=== PATIENT | male | born 1960 | race Caucasian/White ===

== ENCOUNTER 2016-10-22 10:15 | Day surgery (SDC) | payer BC ==
[~2016-10-22] VITALS: Ht 175.3 cm; Wt 88.5 kg
[~2016-10-22 10:15] MED LIST: ASPI-558 PO; CLOP75TA19 PO; DOCO1CAP PO; HYDR-1372 PO; METH750T89 PO; METO25TA41 PO; NITR0.4T38 SL; PANT40TA32 PO; ROSU20TA11 PO; TRAM50TA4 PO; [UNRECOGNIZED DRUG - CODE] IH
--- OUTSIDE RECORDS SUMMARY | 2016-10-22 10:19 | XMS REPORT | Continuity of Care Document ---
Demographics Preferred Language Unknown Marital Status Unknown Jain Affiliation Unknown Race Unknown Ethnic Group Unknown Author Author [facility] Organization [facility] Address Unknown Phone Unavailable Allergies Active Description Code Type Severity Reaction Onset Reported/Identified Relationship to Patient Clinical Status Yes No Known Allergies NKMA N/A N/A 10/09/2014 Medications Problems Procedures Results Encounters ACCT No. Visit Date/Time Discharge Status Pt. Type Provider Facility Loc./Unit Complaint [id number] 12/02/2014 13:22:00 Document Registration
--- OUTSIDE RECORDS SUMMARY | 2016-10-22 10:19 | XMS REPORT | Referral Summary ---
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 Final: OTHER AND UNSPECIFIED HYPERLIPIDEMIA Discharge Disposition: 01-Home or Self Care Attending Physician: Jay Lynch MD Admitting Physician: Jay Lynch MD Vital Signs Most recent to 1 oldest [Reference Range]: Temperature Oral 36.5 degC [35.8-37.3 degC] (10/11/14 12:00 PM) Temperature Tympanic 36.1 degC [36.6-38.1 degC] *LOW* (10/09/14 4:05 PM) Temperature Temporal 36.6 degC Artery [36.3-37.8 (10/10/14 12:35 PM) degC] Peripheral Pulse 62 bpm Rate [60-100 bpm] (10/11/14 6:10 PM) Heart Rate Monitored 53 bpm [60-100 bpm] *LOW* (10/11/14 4:30 PM) Respiratory Rate 17 br/min [14-20 br/min] (10/11/14 4:30 PM) Blood Pressure 122/74 mmHg [90-140/60-90 mmHg] (10/11/14 6:10 PM) Mean Arterial 89 mmHg Pressure, Cuff (10/11/14 4:30 PM) SpO2 94 % (10/11/14 6:10 PM) Problem List Condition Effective Dates Status Health Status Informant Acute Active pain(Confirmed) Cardiac Active disorder(Confirmed)1 Chronic back Active patient pain(Confirmed) High Active patient cholesterol(Confirme d) Knowledge Active deficit(Confirmed)2 No Chronic Problems Active Tissue perfusion Active alteration(Confirmed )3 Tobacco Active patient user(Confirmed) 1Problem added automatically by system based on initiation of Cardiac Output/ Ineffective Cardiac Perfusion Plan of Care 2Problem added automatically by system based on initiation of Knowledge Deficit Plan of Care 3Problem added automatically by system based on initiation of Tissue Perfusion Cerebral Plan of Care Allergies, Adverse Reactions, Alerts No Known Allergies Medications aspirin 81 mg, Oral, Daily, 0 Refill(s) Start Date: 10/09/14 Status: Ordered Crestor 20 mg, Oral, Bedtime (once a day), 0 Refill(s) Start Date: 10/09/14 Status: Ordered Fish Oil Oral, Daily, 0 Refill(s) Start Date: 10/09/14 Status: Ordered isosorbide mononitrate 30 mg oral tablet, extended release 1 tabs, Oral, qAM, # 30 tabs, 6 Refill(s), other reason (Rx) Start Date: 10/11/14 Status: Ordered methocarbamol 750 mg, Oral, q6hr, 0 Refill(s) Start Date: 10/09/14 Status: Ordered metoprolol tartrate 25 mg oral tablet 1 tabs, Oral, BID, # 60 tabs, 0 Refill(s), other reason (Rx) Start Date: 10/11/14 Status: Ordered Mazama 10 mg-325 mg oral tablet 1 tabs, Oral, q6hr, as needed for pain, 0 Refill(s) Start Date: 10/09/14 Status: Ordered Plavix 75 mg, Oral, Daily, 0 Refill(s) Start Date: 10/09/14 Status: Ordered traMADol 50 mg, Oral, QID, as needed for pain, 0 Refill(s) Start Date: 10/09/14 Status: Ordered Ventolin HFA 90 mcg/inh inhalation aerosol 2 puffs, Inhalation, q4hr, as needed for wheezing, 0 Refill(s) Start Date: 10/09/14 Status: Ordered Results Hematology Most recent to 1 oldest [Reference Range]: WBC [4.8-10.8 9.7 10*3/uL 10*3/uL] (10/11/14 6:30 AM) RBC [4.60-6.20 5.18 10*6/uL 10*6/uL] (10/11/14 6:30 AM) Hgb [14.0-18.0 15.8 gm/dL gm/dL] (10/11/14 6:30 AM) Hct [42.0-52.0 %] 46.7 % (10/11/14 6:30 AM) MCV [82.0-99.0 fL] 90.2 fL (10/11/14 6:30 AM) MCH [27.0-32.0 pg] 30.5 pg (10/11/14 6:30 AM) MCHC [32.0-36.0 33.8 gm/dL gm/dL] (10/11/14 6:30 AM) RDW [11.5-14.5 %] 13.0 % (10/11/14 6:30 AM) Platelet [150-400 158 10*3/uL 10*3/uL] (10/11/14 6:30 AM) MPV [9.4-12.3 fL] 10.3 fL (10/11/14 6:30 AM) Immature 0.6 % Granulocytes (10/09/14 2:35 PM) [0.0-1.0 %] Neutrophils [51-75 51 % %] (10/09/14 2:35 PM) Lymphocytes [20-46 40 % %] (10/09/14 2:35 PM) Monocytes [4-11 %] 7 % (10/09/14 2:35 PM) Eosinophils [0-4 %] 2 % (10/09/14 2:35 PM) Basophils [0-2 %] 0 % (10/09/14 2:35 PM) Neutro Absolute 6.35 10*3 [1.90-7.00 10*3] (10/09/14 2:35 PM) Lymph Absolute 4.99 10*3 [0.80-3.30 10*3] *HI* (10/09/14 2:35 PM) [place] Absolute 0.81 10*3 [0.30-1.00 10*3] (10/09/14 2:35 PM) Eos Absolute 0.20 10*3 [0.00-0.50 10*3] (10/09/14 2:35 PM) Baso Absolute 0.04 10*3 [0.00-0.20 10*3] (10/09/14 2:35 PM) Nucleated RBC 0.0 /100 WBC Automated [0 /100 (10/09/14 2:35 PM) WBC] Coagulation Most recent to 1 oldest [Reference Range]: INR [0.9-1.2] 1.0 (10/09/14 5:02 PM) PTT [25.0-35.0] 32.7 (10/10/14 6:01 PM) Chemistry Most recent to 1 oldest [Reference Range]: Sodium Lvl [136-144 138 mEq/L mEq/L] (10/11/14 6:30 AM) Potassium Lvl 4.0 mEq/L [3.6-5.1 mEq/L] (10/11/14 6:30 AM) Chloride [99-109 106 mEq/L mEq/L] (10/11/14 6:30 AM) CO2 [22-32 mEq/L] 26 mEq/L (10/11/14 6:30 AM) AGAP [3-20] 6 (10/11/14 6:30 AM) BUN [4-20 mg/dL] 13 mg/dL (10/11/14 6:30 AM) Glucose Lvl [70-100 103 mg/dL mg/dL] *HI* (10/11/14 6:30 AM) Creatinine Lvl 0.76 mg/dL [0.64-1.27 mg/dL] (10/11/14 6:30 AM) eGFR [>60] >60 1 (10/11/14 6:30 AM) Calcium Lvl 9.0 mg/dL [8.6-10.0 mg/dL] (10/11/14 6:30 AM) Albumin Lvl [3.5-4.8 4.4 gm/dL gm/dL] (10/09/14 2:35 PM) Total Protein 6.8 gm/dL [6.1-7.9 gm/dL] (10/09/14 2:35 PM) Globulin [1.9-4.3 2.4 gm/dL gm/dL] (10/09/14 2:35 PM) ALT [17-63 U/L] 22 U/L (10/09/14 2:35 PM) AST [15-41 U/L] 26 U/L (10/09/14 2:35 PM) Alk Phos [26-104 61 U/L U/L] (10/09/14 2:35 PM) Bili Total [0.2-1.2 0.8 mg/dL 2 mg/dL] (10/09/14 2:35 PM) Troponin [<0.06 <0.05 ng/mL ng/mL] (10/10/14 4:18 AM) Sodium Venous 132 mEq/L [136-144 mEq/L] *LOW* (10/09/14 2:47 PM) Potassium Venous 3.6 mEq/L 3 [3.6-5.1 mEq/L] (10/09/14 2:47 PM) Calcium Ionized 0.99 mmol/L Venous [1.19-1.41 *LOW* mmol/L] (10/09/14 2:47 PM) Total CO2 Venous 24 mEq/L [25-29 mEq/L] *LOW* (10/09/14 2:47 PM) HGB Venous NPT 16.7 gm/dL [14.0-16.0 gm/dL] *HI* (10/09/14 2:47 PM) HCT Venous 49.0 % [42.0-52.0 %] (10/09/14 2:47 PM) Glucose Venous 103 mg/dL [70-100 mg/dL] *HI* (10/09/14 2:47 PM) BUN Venous [4-20] 10 (10/09/14 2:47 PM) Creatinine Venous 0.9 mg/dL [0.7-1.2 mg/dL] (10/09/14 2:47 PM) Venous CL [99-109 112 mEq/L mEq/L] *HI* (10/09/14 2:47 PM) Anion Gap, Vignesh -4 [3-20] *LOW* (10/09/14 2:47 PM) Blood Glucose, 98 mg/dL Capillary [70-100 (10/11/14 12:40 PM) mg/dL] 1Result Comment: Multiply eGFR results by 1.21 for race. 2Result Comment: Naproxen, specifically the metabolite O-desmethylnaproxen, may cause spurious elevation in Total Bilirubin levels. 3Result Comment: This test was performed on a whole blood specimen. The presence or absence of hemolysis cannot be assessed. Hemolysis can falsely elevate potassium levels. Normals are for venous specimens only. Immunizations No data available for this section Procedures Procedure Date Related Diagnosis Body Site Stent placement1 01/01/14 Cervical spine2 06/03/07 Shoulder implantation3 06/03/04 Stent placement4 1has had 5 coronary stents, most recent in january 2screws placed in cervical spine 3prosthetic shoulder 45 coronary stents Social History Social History Type Response Smoking Status Current every day smoker; Type: Cigarettes; Tobacco use per day: 1 Pack1 04/04 - 1 pack Assessment and Plan No data available for this section
--- OUTSIDE RECORDS SUMMARY | 2016-10-22 10:19 | XMS REPORT | Continuity of Care Document ---
Author Author [facility] Organization [facility] Address Unknown Phone Unavailable Support Name Relationship Address Phone MUKESH HEBERT II, MD Caregiver [address] [facility] [place] [phone] RAN PATEL MD Caregiver [facility] [place] [phone] ROULA GOODMAN Next Of Kin [phone] [id number] Insurance Providers Payer Name Policy Number Subscriber Name Relationship [facility] [id number] Jose Alfredo Goodman 20 Self Advance Directives Directive Response Recorded Date/Time Advanced Directives Type None 11/12/13 10:05am Problems Medical Problems Problem Onset Date Status Right flank pain Unknown Active Right flank pain Unknown Active Laceration Unknown Active Medications Medication Dose Route Sig Days/Qty Instructions Order Date Discontinued Date Status Aspirin 81 Mg PO DAILY 09/07/08 Active Rosuvastatin Calcium 20 Mg PO DAILY 09/07/08 Active Docosahexanoic Acid/Epa 400 Mg PO TWICE A DAY 09/07/08 Active Methocarbamol 750 Mg PO Every 6 Hours 09/07/08 Active Tramadol Hcl 50 Mg PO FOUR TIMES DAILY PRN 08/08/12 Active Isosorbide Mononitrate 30 Mg PO DAILY 08/11/12 10/07/12 Discontinued Nitroglycerin 0.4 Mg SL NEEDED 08/11/12 Active Albuterol Sulfate NEEDED 08/11/12 08/12/12 Discontinued Ipratropium/Albuterol Sulfate 2 Puff IH NEEDED 08/12/12 Active Metoprolol Tartrate 25 Mg PO TWICE A DAY 10/07/12 Active Clopidogrel Bisulfate 75 Mg PO DAILY 10/07/12 Active Pantoprazole Sodium 40 Mg PO DAILY 10/08/12 Active Hydrocodone Bit/Acetaminophen 1-2 Tab PO Every 6 Hours PRN PAIN 30 Qty 11/12/13 Active Social History Social History Problem Response Recorded Date/Time Smoking Status Former smoker 11/12/2013 10:30am When did patient START smoking? 17 years of age 1104/04/2014 12:09pm Chewing Tobacco Status No 11/12/2013 10:30am Hx Substance Use No 04/04/2014 12:09pm Hx Alcohol Use No 04/04/2014 12:09pm Has the pt used tobacco in the last 12 months Yes 10/07/2012 2:51pm Query Response Start Date Stop Date Smoking Status Former smoker Hospital Discharge Instructions No hospital discharge instructions. Plan of Care No plan of care. Functional Status Query Response Date Recorded Physical Hygiene Self April 04, 2014 12:09pm Disabilities None April 04, 2014 12:09pm Devices Used None April 04, 2014 12:09pm Dressing Self April 04, 2014 12:09pm Ambulation Self April 04, 2014 12:09pm Diet Self April 04, 2014 12:09pm Mental Status Alert Oriented April 04, 2014 12:52pm Disabilities None April 04, 2014 12:09pm Devices Used None April 04, 2014 12:09pm Physical Hygiene Self April 04, 2014 12:09pm Dressing Self April 04, 2014 12:09pm Ambulation Self April 04, 2014 12:09pm Diet Self April 04, 2014 12:09pm Allergies, Adverse Reactions, Alerts Allergen Type Severity Reaction Status Last Updated Cephalosporins Allergy Unknown HIVES Active 04/04/14 Immunizations Name Given Type Hx Influenza Vaccination Y AUGUST 2012 Historical Hx Pneumococcal Vaccination Y AUGUST 2012 Historical Hx Tetanus, Diptheria, Pertussis Y 2011 Historical Hx Influenza Vaccination Y AUGUST 2012 Historical Hx Tetanus, Diptheria, Pertussis Y 2011 Historical Vital Signs Acute Vital Signs Vital Response Date/Time Temperature (Fahrenheit) 97.3 deg F (96.8 - 99.1) Temperature (Calculated Celsius) 36.54739 degrees C (36.0 - 37.3) Pulse Rate (adult) 61 bpm (60 - 100) Respiratory Rate 18 breaths/min (10 - 20) O2 Sat by Pulse Oximetry 93 % (90 - 100) Blood Pressure 127/73 mm Hg Height 5 ft 9 in Weight 192 lb Body Mass Index 28.0 kg/m^2 Results Test Source Date Result Interp. Ref. Range Comments Activated Partial Thromboplast Time August 08, 2012 7:06pm 35.5 SEC N 24- 36 Alanine Aminotransferase (ALT/SGPT) November 12, 2013 10:10am 29 U/L N 21- 72 Albumin November 12, 2013 10:10am 5.0 G/DL N 3.5-5.0 Albumin/Globulin Ratio November 12, 2013 10:10am 1.9 RATIO N 1.1-2.2 Alkaline Phosphatase November 12, 2013 10:10am 74 U/L N 38-126 Anion Gap November 12, 2013 10:10am 13 MEQ/L N 5-15 Aspartate Amino Transf (AST/SGOT) November 12, 2013 10:10am 26 U/L N 17-59 BUN/Creatinine Ratio November 12, 2013 10:10am 15 RATIO N 6-26 Band Neutrophils # September 02, 2010 3:00pm 0.5 T/MM3 - Band Neutrophils % September 02, 2010 3:00pm 3.0 % N 0-6 Basophils # (Auto) November 12, 2013 10:10am 0.1 T/MM3 N 0-0.2 Basophils (%) (Auto) November 12, 2013 10:10am 0.5 % N 0-2 Blood Urea Nitrogen November 12, 2013 10:10am 9.0 MG/DL N 9-20 C-Reactive Protein September 02, 2010 3:00pm < 5.0 MG/L 0-9 Calcium Level November 12, 2013 10:10am 9.6 MG/DL N 8.4-10.2 Calculated Osmolality November 12, 2013 10:10am 276 MOSM/KG N 261-280 Carbon Dioxide Level November 12, 2013 10:10am 25 MEQ/L N 22-30 Chloride Level November 12, 2013 10:10am 106 MEQ/L N 98-107 Cholesterol Level August 12, 2012 12:00pm 227 MG/DL H 132-199 COMMENT WILL CALL WHEN PT IS ADMITTEDCOMMENT WILL CALL WHEN PT IS HERE/ PLEASE FAX TO [phone] Cholesterol/HDL Ratio August 12, 2012 12:00pm 7.1 RATIO H 0-5.0 COMMENT WILL CALL WHEN PT IS ADMITTEDCOMMENT WILL CALL WHEN PT IS HERE/ PLEASE FAX TO [phone] Conjugated Bilirubin August 08, 2012 7:06pm 0.00 MG/DL N 0.00-0.30 Creatinine November 12, 2013 10:10am 0.6 MG/DL L 0.8-1.5 Differential Total Cells Counted September 02, 2010 3:00pm 100 % - Eosinophils # (Auto) November 12, 2013 10:10am 0.1 T/MM3 N 0-0.5 Eosinophils # (Manual) September 02, 2010 3:00pm 0.6 T/MM3 H 0-0.5 Eosinophils % (Manual) September 02, 2010 3:00pm 4.0 % N 0-4 Eosinophils (%) (Auto) November 12, 2013 10:10am 1.0 % N 0-4 Erythrocyte Sedimentation Rate September 02, 2010 3:00pm 55 MM/HR H 0-15 Globulin November 12, 2013 10:10am 2.7 G/DL N 2.4-3.6 Glucose Level November 12, 2013 10:10am 100 MG/DL N 75-110 Hematocrit November 12, 2013 10:10am 49.7 % N 41-53 Hemoglobin November 12, 2013 10:10am 17.2 GM/DL N 13.5-17.5 LDL Cholesterol, Calculated August 12, 2012 12:00pm 195 H 66-159 COMMENT WILL CALL WHEN PT IS ADMITTEDCOMMENT WILL CALL WHEN PT IS HERE/ PLEASE FAX TO [phone] Lipase November 12, 2013 10:10am 67 U/L N 23-300 Lymphocytes # (Auto) November 12, 2013 10:10am 3.1 T/MM3 N 1-4.8 Lymphocytes # (Manual) September 02, 2010 3:00pm 3.7 T/MM3 N 1-4.8 Lymphocytes % (Manual) September 02, 2010 3:00pm 24.0 % N 23-45 Lymphocytes (%) (Auto) November 12, 2013 10:10am 23.9 % N 23-45 Mean Corpuscular Hemoglobin November 12, 2013 10:10am 30.7 UUG N 26-34 Mean Corpuscular Hemoglobin Concent November 12, 2013 10:10am 34.6 GM/DL N 31-37 Mean Corpuscular Volume November 12, 2013 10:10am 88.6 UM3 N 80-100 Mean Platelet Volume November 12, 2013 10:10am 10.7 UM3 N 9.4-12.4 Monocytes # (Auto) November 12, 2013 10:10am 0.5 T/MM3 N 0-0.8 Monocytes (%) (Auto) November 12, 2013 10:10am 4.2 % N 0-9.0 Neutrophils # (Auto) November 12, 2013 10:10am 9.0 T/MM3 H 1.8-7.7 Neutrophils # (Manual) September 02, 2010 3:00pm 10.6 T/MM3 H 1.8-7.7 Neutrophils % (Manual) September 02, 2010 3:00pm 69.0 % H 33-66 Neutrophils (%) (Auto) November 12, 2013 10:10am 70.1 % H 33-66 Platelet Count November 12, 2013 10:10am 172 T/MM3 N 130-400 Potassium Level November 12, 2013 10:10am 4.3 MEQ/L N 3.6-5 Prothromb Time International Ratio August 08, 2012 7:06pm 0.96 N 0.86- 1.10 THERAPUTIC RANGE=2.00-3.00 FOR ANTI-THROMBOSIS THERAPUTIC RANGE=2.50- 3.50 FOR IMPLANTED VALVE RDW Standard Deviation November 12, 2013 10:10am 42.9 FL N 36.9-50.2 Red Blood Count November 12, 2013 10:10am 5.61 M/MM3 N 4.50-5.90 Sodium Level November 12, 2013 10:10am 144 MEQ/L N 134-144 Total Bilirubin November 12, 2013 10:10am 0.60 MG/DL N 0.20-1.30 Total Protein November 12, 2013 10:10am 7.7 G/DL N 6.3-8.2 Triglycerides Level August 12, 2012 12:00pm 422 MG/DL H 40-160 COMMENT WILL CALL WHEN PT IS ADMITTEDCOMMENT WILL CALL WHEN PT IS HERE/ PLEASE FAX TO [phone] Troponin I August 09, 2012 1:32pm < 0.012 ng/ml 0-0.12 Unconjugated Bilirubin August 08, 2012 7:06pm 0.20 MG/DL N 0.00-1.10 Urine Bilirubin November 12, 2013 11:05am Negative - Has specimen been collected/obtained? Y Urine Blood November 12, 2013 11:05am Negative - Has specimen been collected/obtained? Y Urine Collection Type November 12, 2013 11:05am Voided-not cc-midstr - Has specimen been collected/obtained? Y Urine Color November 12, 2013 11:05am Yellow - Has specimen been collected/obtained? Y Urine Glucose (UA) November 12, 2013 11:05am Negative - Has specimen been collected/obtained? Y Urine Ketones November 12, 2013 11:05am Negative - Has specimen been collected/obtained? Y Urine Leukocyte Esterase November 12, 2013 11:05am Trace H - Has specimen been collected/obtained? Y Urine Nitrite November 12, 2013 11:05am Negative - Has specimen been collected/obtained? Y Urine Protein November 12, 2013 11:05am Negative - Has specimen been collected/obtained? Y Urine Specific Export November 12, 2013 11:05am 1.020 - Has specimen been collected/obtained? Y Urine Turbidity November 12, 2013 11:05am Clear - Has specimen been collected/obtained? Y Urine Urobilinogen November 12, 2013 11:05am 0.2 EU/DL - Has specimen been collected/obtained? Y Urine pH November 12, 2013 11:05am 6.5 - Has specimen been collected/ obtained? Y VLDL Cholesterol August 12, 2012 12:00pm 84.4 MG/DL H 0-28 COMMENT WILL CALL WHEN PT IS ADMITTEDCOMMENT WILL CALL WHEN PT IS HERE/ PLEASE FAX TO [phone] White Blood Count November 12, 2013 10:10am 12.8 T/MM3 H 4.5-11.0 Chemistry Specimen Hemolysis November 12, 2013 10:10am 24 N 0-25 0-25: No Hemolysis.26-70: Slight Hemolysis - can falsely elevate K and Urine Protein. 71-285: Moderate Hemolysis - can falsely elevate K, Troponin I, CA 19-9, PTH, CSF GLucose, and Urine Protein, and can falsely decrease Phenytoin. 286-999: Gross Hemolysis - can falsely elevate K, Troponin I, CA 19-9, PTH, CSF Glucose, and Urine Protine, and can falsely decrease Phenytoin. Recommend specimen recollection. Urinalysis Comment November 12, 2013 11:05am Microscopic not ind. - Has specimen been collected/obtained? Y HDL Cholesterol Direct August 12, 2012 12:00pm 32 MG/DL L 40-60 COMMENT WILL CALL WHEN PT IS ADMITTEDCOMMENT WILL CALL WHEN PT IS HERE/ PLEASE FAX TO [phone] Turbidity November 12, 2013 10:10am < 20 0-20 Glomerular Filtration Rate Calc November 12, 2013 10:10am 142 - Immature Granulocyte # (Auto) November 12, 2013 10:10am 0.04 T/MM3 H 0.00- 0.03 Immature Granulocyte % (Auto) November 12, 2013 10:10am 0.3 % N 0.0-0.5 Icterus Index November 12, 2013 10:10am < 2 0-7 NU-Grn-F-Type Natriuretic Peptide August 08, 2012 7:06pm 32 PG/ML N 0- 175 Rule in cut points: <50 years old=450; 50-75 years old=900; >75 years old=1800; When utilizing ProBNP rule-in cut points, adjustment for impaired renal function is typically not required. Blood Culture Blood September 02, 2010 3:00pm NO GROWTH AFTER 5 DAYS Procedures No known history of procedures. Encounters Encounter Location Date/Time Departed Emergency Room [facility] 04/04/14 11:40am Recent Diagnosis
[2016-10-22 10:35] LABS: BASOPHILS # (AUTO) 0.1 T/MM3 (0-0.2); BASOPHILS % (AUTO) 0.6 % (0-2); EOSINOPHILS # (AUTO) 0.3 T/MM3 (0-0.5); EOSINOPHILS % (AUTO) 2.7 % (0-4); HCT - HEMATOCRIT 43.9 % (41-53); HGB - HEMOGLOBIN 15.8 GM/DL (13.5-17.5); IMMATURE GRANULOCYTE # (AUTO) 0.04 T/MM3 (0.00-0.03); IMMATURE GRANULOCYTE % (AUTO) 0.4 % (0.0-0.5); LYMPHOCYTES % (AUTO) 37.7 % (23-45); MEAN CORPUSCULAR HGB 31.5 UUG (26-34); MEAN CORPUSCULAR VOLUME 87.5 UM3 (80-100); MEAN PLATELET VOLUME 10.7 UM3 (9.4-12.4); MONOCYTES # (AUTO) 0.6 T/MM3 (0-0.8); MONOCYTES % (AUTO) 5.9 % (0-9.0); NEUTROPHILS #(AUTO)-ABSOLUTE 5.6 T/MM3 (1.8-7.7); NEUTROPHILS % (AUTO) 52.7 % (33-66); RED BLOOD COUNT 5.02 M/MM3 (4.50-5.90); WBC - WHITE BLOOD COUNT 10.5 T/MM3 (4.5-11.0)
--- OUTSIDE RECORDS SUMMARY | 2016-10-22 10:36 | XMS REPORT | Continuity of Care Document ---
Demographics Preferred Language Unknown Marital Status Unknown Shinto Affiliation Unknown Race Unknown Ethnic Group Unknown Author Author [facility] Organization [facility] Address Unknown Phone Unavailable Allergies Active Description Code Type Severity Reaction Onset Reported/Identified Relationship to Patient Clinical Status Yes No Known Allergies NKMA N/A N/A 10/09/2014 Medications Problems Procedures Results Encounters ACCT No. Visit Date/Time Discharge Status Pt. Type Provider Facility Loc./Unit Complaint [id number] 12/02/2014 13:22:00 Document Registration
--- OUTSIDE RECORDS SUMMARY | 2016-10-22 10:37 | XMS REPORT | Continuity of Care Document ---
Author Author [facility] Organization [facility] Address Unknown Phone Unavailable Support Name Relationship Address Phone MUKESH HEBERT II, MD Caregiver [address] [facility] [place] [phone] RAN PATEL MD Caregiver [facility] [place] [phone] ROULA GOODMAN Next Of Kin [address] [id number] Insurance Providers Payer Name Policy Number Subscriber Name Relationship [facility] [id number] Jose Alfredo Goodman 20 Self Advance Directives [...] F (96.8 - 99.1) Temperature (Calculated Celsius) 36.51291 degrees C (36.0 - 37.3) Pulse Rate [...] WHEN PT IS HERE/ PLEASE FAX TO [phone] Cholesterol/HDL Ratio August 12, 2012 12:00pm 7.1 RATIO H 0-5.0 COMMENT WILL CALL WHEN PT IS ADMITTEDCOMMENT WILL CALL WHEN PT IS HERE/ PLEASE FAX TO [phone] Conjugated Bilirubin August 08, 2012 7:06pm 0.00 [...] WHEN PT IS HERE/ PLEASE FAX TO [phone] Lipase November 12, 2013 10:10am 67 U/L [...] WHEN PT IS HERE/ PLEASE FAX TO [phone] Troponin I August 09, 2012 1:32pm < [...] Has specimen been collected/obtained? Y Urine Specific [place] November 12, 2013 11:05am 1.020 - Has [...] WHEN PT IS HERE/ PLEASE FAX TO [phone] White Blood Count November 12, 2013 10:10am [...] WHEN PT IS HERE/ PLEASE FAX TO [phone] Turbidity November 12, 2013 10:10am < 20 0-20 Glomerular Filtration Rate Calc November 12, 2013 10:10am 142 - Immature Granulocyte # (Auto) November 12, 2013 10:10am 0.04 T/MM3 H 0.00- 0.03 Immature Granulocyte % (Auto) November 12, 2013 10:10am 0.3 % N 0.0-0.5 Icterus Index November 12, 2013 10:10am < 2 0-7 VM-Byo-T-Type Natriuretic Peptide August 08, 2012 7:06pm 32 [...] Encounters Encounter Location Date/Time Departed Emergency Room [facility] 04/04/14 11:40am Recent Diagnosis
--- NOTE | 2016-10-22 10:42 | ERPDOC ---
Departure Disposition Decision Date: October 22, 2016 Disposition Decision Time: 11:00 Disposition: 02 TO [facility] Impression Impression Impression: Primary Impression: Chest pain Chest pain type: unspecified Qualified Codes: R07.9 - Chest pain, unspecified Severity: Moderate Condition: Improved Seen By: Physician only Referrals: MUKESH HEBERT II, MD (Family) Problems/Meds/Labs Reviewed?: Yes Medications reviewed and manag: Yes Follow up care ordered?: Yes Mental Status: Alert, Oriented HPI - Chest Pain General Chief Complaint: Chest Pain Stated Complaint: CHEST PAIN Time Seen by Provider: 10:23 Source: patient Exam Limitations: no limitations HPI - Chest Pain Initial Comments 56-year-old male presents to emergency department with a chief complaint of chest pain. Patient noted onset of symptoms between 1 and 2 AM earlier today. Patient describes the pain as a very mild pressure sensation in his chest without current radiation. Earlier today the pain did radiate toward his neck. Patient denies any other complaints or associated symptoms. Symptoms have been persistent in nature since onset. He does not note any exacerbating or remitting factors at this time. Patient does have a history of coronary artery disease with 5 stents which have been placed in the past. His last heart cath was in [address] Rabago who is his director global market research. Occurred At: home Onset/Timing: other (Improving) Aspirin Treatment Today: 81 mg x 4, provided by ED Allergies: Coded Allergies: No Known Allergies (Unverified , 10/22/16) Past History Past Medical History Metabolic: hypercholesterolemia Cardiac: CAD Musculoskeletal: back pain, other Surgical History General: back, neck Cardiac: cardiac cath, cardiac stent Joint: knee, shoulder Family History Family PMH: FOUND: [place], diabetes, hypertension Vaccines Hx Influenza Vaccination: Yes (AUGUST 2012) Hx Pneumococcal Vaccination: Yes (AUGUST 2012) Hx Tetanus, Diptheria, Pertuss: Yes (2011) Social History Sexuality: female partner Review of Systems Constitutional Constitutional: DENIES: chills, fever Eyes General: DENIES: erythema, exudate Lids/Accessories: DENIES: erythema, swelling Vision: DENIES: acuity, blurring ENMT Ears: DENIES: drainage, erythema Hearing: DENIES: hearing loss Balance: DENIES: ataxia, falling to one side Sinuses: DENIES: congestion, pain Nose: DENIES: nosebleeds, pain Mouth/Throat: DENIES: painful swallowing, sore throat Teeth: DENIES: pain Jaw: DENIES: pain Cardiovascular Cardiac: chest pain, DENIES: dyspnea on exertion Rhythm/Rate: DENIES: irregular beat, palpitations Vascular: DENIES: pedal edema, unilateral swelling Pulmonary Respiratory: DENIES: cough, dyspnea, pleuritic chest pain, sputum GI Upper Abdomen: DENIES: nausea, pain, vomiting Lower Abdomen: DENIES: diarrhea, pain General: DENIES: burning, dysuria, frequency, urgency Musculoskeletal General: DENIES: joint pain, pain, tenderness Integumentary Skin: DENIES: itching, rash Neurological General: DENIES: change in strength, headache, numbness, weakness Psychiatric Psychiatric: DENIES: emotional instability, suicidal ideation/attempt Endocrine Endocrine: DENIES: polydipsia, polyphagia Hematologic/Lymphatic Hematologic/Lymphatic: DENIES: frequent nosebleeds, lymphadenopathy Allergic/Immunological Allergic/Immunoligical: DENIES: allergic reactions, hives Physical Exam General General Nourishment: well nourished, well developed, appears stated age, no acute distress, adult General Body Habitus: well groomed Vitals and Pain First Documented Vital Signs Date Time Temp Pulse Resp B/P Pulse Ox O2 Delivery O2 Flow Rate FiO2 10/22/16 10:16 98.5 63 19 125/83 95 Room Air Weight: Kilograms: 89.900 Height (feet): 5 Height (inches): 9.00 Triage Pain Scale: RN VS reviewed by Provider: Yes Normal Exams: Head: Normocephalic w/o trauma Eyes: Pupils are PERRLA w/ EOMI, No scleral icterus, irritation, or foreign bodies noted ENMT: No facial trauma, nasal exudates, pharyngeal erythema, or exudates are noted Dental: No fractured, loose, or missing teeth noted Neck: Full range of motion, without adenopathy, JVD, bruits or thyromegaly Chest/Resp: Clear all cheng, with good airflow, and symmetry bilaterally CV: Regular rate and rhythm, without murmur or gallop, Pulses 2+ all extremities, capillary refill, <2 seconds all ext., no pedal edema noted Abdomen: Bowel sounds positive, soft, non-tender, non-distended, no hepatosplenomegaly, masses or bruits noted Lymphatic: No lymphadenopathy, or lymphedema noted Musculoskeletal: No tenderness, or deformity noted, good range of motion, all extremities Integumentary: No rashes, hives, or bruising noted, hair and nails, without abnormality Neurologic: Patient is alert, and oriented, cranial nerves, motor/sensory/ cerebellar, exams w/o gross deficits, to observation Psychiatric: Patient exhibits, appropriate attention, emotion and affect Differential Diagnoses Considering: Acute GA, Anxiety/Panic, Angina, Pneumothorax Progress Results/Orders Orders Procedure Category Date Status Time Cbc W/Auto LAB 10/22/16 Complete Diff-Reflex Manual Cmp - Comprehensive LAB 10/22/16 Complete Metabolic Troponin I W LAB 10/22/16 Complete Hemolysis Index EKG EKG 10/22/16 Taken Chest 1 View RAD 10/22/16 Resulted 10:23 Aspirin (Asa) PHA 10/23/16 In Process 09:00 Fentanyl (Fentanyl) PHA 10/22/16 Complete 11:15 Normal Saline (Normal PHA 10/22/16 Complete Saline Iv) 11:15 Ondansetron Inj PHA 10/22/16 Complete (Zofran) 11:15 Place In Facility: ED ADM 10/22/16 Transmitted 11:01 Lab Results Laboratory Tests Test 10/22/16 10:30 White Blood Count 10.5T/MM3 Red Blood Count 5.02M/MM3 Hemoglobin 15.8GM/DL Hematocrit 43.9% Mean Corpuscular Volume 87.5UM3 Mean Corpuscular Hemoglobin 31.5UUG Mean Corpuscular Hemoglobin Concent 36.0GM/DL RDW Standard Deviation 39.5FL Platelet Count 165T/MM3 Mean Platelet Volume 10.7UM3 Immature Granulocyte % (Auto) 0.4% Neutrophils (%) (Auto) 52.7% Lymphocytes (%) (Auto) 37.7% Monocytes (%) (Auto) 5.9% Eosinophils (%) (Auto) 2.7% Basophils (%) (Auto) 0.6% Absolute Immature Granulocyte (auto 0.04T/MM3 Absolute Neutrophils (auto) 5.6T/MM3 Absolute Lymphocytes (auto) 4.0T/MM3 Absolute Monocytes (auto) 0.6T/MM3 Absolute Eosinophils (auto) 0.3T/MM3 Absolute Basophils (auto) 0.1T/MM3 Turbidity 30 Sodium Level 141MEQ/L Potassium Level 3.8MEQ/L Chloride Level 105MEQ/L Carbon Dioxide Level 24MEQ/L Anion Gap 12MEQ/L Blood Urea Nitrogen 12.0MG/DL Creatinine 0.7MG/DL Glomerular Filtration Rate Calc 118 BUN/Creatinine Ratio 17RATIO Glucose Level 123MG/DL Calculated Osmolality 272MOSM/KG Calcium Level 9.2MG/DL Total Bilirubin 0.60MG/DL Icterus Index < 2 Aspartate Amino Transf (AST/SGOT) 27U/L Alanine Aminotransferase (ALT/SGPT) 50U/L Alkaline Phosphatase 70U/L Troponin I < 0.012ng/ml Total Protein 6.9G/DL Albumin 4.6G/DL Globulin 2.3G/DL Albumin/Globulin Ratio 2.0RATIO Chemistry Specimen Hemolysis 31 Progress Progress Labs / Imaging were discussed in detail with the patient and family and questions are answered. Patient is given fentanyl 50 g IV times one and Zofran 4 mg IV 1 with improvement of symptoms. Patient is given gentle IV hydration. Patient is given aspirin 324 mg by mouth 1 in the emergency Department. Patient is discussed with his director global market research Dr. Rabago and will be admitted to his service in improved condition for an ACS rule out. Patient and family are in agreement with the current plan of management. Patient is admitted to the hospital in improved condition. No further orders from accepting physician who is in agreement with the current plan of management. EKG EKG : Rate: 60-100 Rhythm: sinus [place]: normal QRS: normal Intervals: normal ST/T: normal Interpreted by: signing physician Xray Xray : Xray: CXR Portable Interpretation: Normal, Reviewed Written Report MIGUEL PICHARDO DO October 22, 2016 10:41
[2016-10-22 10:44] LABS: ALBUMIN 4.6 G/DL (3.5-5.0); ALKALINE PHOSPHATASE 70 U/L (38-126); ALT (SGPT) 50 U/L (21-72); ANION GAP 12 MEQ/L (5-15); AST (SGOT) 27 U/L (17-59); BUN/CREATININE RATIO 17 RATIO (6-26); CALCIUM 9.2 MG/DL (8.4-10.2); CHLORIDE 105 MEQ/L (98-107); CO2 - CARBON DIOXIDE 24 MEQ/L (22-30); CREATININE 0.7 MG/DL (0.8-1.5); GLOMERULAR FILTRATION RATE 118; GLUCOSE 123 MG/DL (75-110); POTASSIUM 3.8 MEQ/L (3.6-5); SODIUM 141 MEQ/L (134-144); TOTAL PROTEIN 6.9 G/DL (6.3-8.2)
[2016-10-22] MEDS ORDERED: HYDR-3995 PO (10:48)
[2016-10-22] MEDS ORDERED: ISOS30TA6 PO (10:53)
[2016-10-22] MEDS ORDERED: ISOS60TA4 PO (10:53)
--- NOTE | 2016-10-22 10:53 | DI ---
Indication: ITS.REASON: cp CHEST 1 VIEW: Comparison: August 08 2012 Technique: Single AP portable upright chest Findings: Patient continues to show normal heart, mediastinum and central vascularity. Lungs are clear. Postop changes of a right shoulder replacement are present. Impression: No active cardiopulmonary abnormality. .
[2016-10-22] MEDS ORDERED: ALBU18HF2 ORAL INH (10:57)
[2016-10-22] MEDS ORDERED: ATOR40TA64 PO (10:57)
[2016-10-22] MEDS ORDERED: FENTANYL 100mcg/2ml INJECTION IV ONE (11:15)
[2016-10-22] MEDS ORDERED: NORMAL SALINE 1,000 ML IV ONE (11:15)
[2016-10-22] MEDS ORDERED: ONDANSETRON 4mg/2ml INJECTION IV ONE (11:15)
--- NOTE | 2016-10-22 11:25 | NUR ---
REPORT REPORT GIVEN TO ANDRAE WOODWARD ON MEDICAL UNIT.
--- NOTE | 2016-10-22 11:45 | NUR ---
ADMIT PATIENT TAKEN TO MEDICAL UNIT ROOM 146 PER CART, STABLE. MONITORS IN PLACE. BELONGINGS WITH PATIENT.
--- OUTSIDE RECORDS SUMMARY | 2016-10-22 11:45 | XMS REPORT | Continuity of Care Document ---
Author Author [facility] Organization [facility] Address Unknown Phone Unavailable Support Name Relationship Address Phone MUKESH HEBERT II, MD Caregiver [address] [facility] [place] [phone] RAN PATEL MD Caregiver [facility] [place] [phone] ROULA GOODMAN Next Of Kin [phone] [id number] Insurance Providers Payer Name Policy Number Subscriber Name Relationship [facility] [id number] Jose Alfredo Goodman 20 Self Advance Directives [...] F (96.8 - 99.1) Temperature (Calculated Celsius) [phone] degrees C (36.0 - 37.3) Pulse Rate [...] WHEN PT IS HERE/ PLEASE FAX TO [phone] Cholesterol/HDL Ratio August 12, 2012 12:00pm 7.1 RATIO H 0-5.0 COMMENT WILL CALL WHEN PT IS ADMITTEDCOMMENT WILL CALL WHEN PT IS HERE/ PLEASE FAX TO [phone] Conjugated Bilirubin August 08, 2012 7:06pm 0.00 [...] WHEN PT IS HERE/ PLEASE FAX TO [phone] Lipase November 12, 2013 10:10am 67 U/L [...] WHEN PT IS HERE/ PLEASE FAX TO [phone] Troponin I August 09, 2012 1:32pm < [...] Has specimen been collected/obtained? Y Urine Specific [place] November 12, 2013 11:05am 1.020 - Has [...] WHEN PT IS HERE/ PLEASE FAX TO [phone] White Blood Count November 12, 2013 10:10am [...] WHEN PT IS HERE/ PLEASE FAX TO [phone] Turbidity November 12, 2013 10:10am < 20 0-20 Glomerular Filtration Rate Calc November 12, 2013 10:10am 142 - Immature Granulocyte # (Auto) November 12, 2013 10:10am 0.04 T/MM3 H 0.00- 0.03 Immature Granulocyte % (Auto) November 12, 2013 10:10am 0.3 % N 0.0-0.5 Icterus Index November 12, 2013 10:10am < 2 0-7 [id number] Natriuretic Peptide August 08, 2012 7:06pm 32 [...] Encounters Encounter Location Date/Time Departed Emergency Room [facility] 04/04/14 11:40am Recent Diagnosis
--- OUTSIDE RECORDS SUMMARY | 2016-10-22 11:45 | XMS REPORT | Continuity of Care Document ---
Demographics Preferred Language Unknown Marital Status Unknown Tenriism Affiliation Unknown Race Unknown Ethnic Group Unknown Author Author [facility] Organization [facility] Address Unknown Phone Unavailable Allergies Active Description Code Type Severity Reaction Onset Reported/Identified Relationship to Patient Clinical Status Yes No Known Allergies NKMA N/A N/A 10/09/2014 Medications Problems Procedures Results Encounters ACCT No. Visit Date/Time Discharge Status Pt. Type Provider Facility Loc./Unit Complaint [id number] 12/02/2014 13:22:00 Document Registration
--- NOTE | 2016-10-22 11:46 | NUR ---
PT ADMITTED WITH DIAGNOSIS OF CHEST PAIN. PT ALERT AND ORIENTED X3. FRIENDLY AND COOPERATIVE WITH STAFF. DENIES NAUSEA. STATES PAIN IS A "1" AND IS JUST A PRESSURE. NOTHING LIKE IT WAS AT 0100 THIS MORNING. PT ORIENTED TO HOSPITAL ENVIRONMENT. DENIES NEEDS AT THIS TIME. UP AD DONNIE ABOUT ROOM
[2016-10-22 11:50] VITALS: BP 126/80; PULSE 62; RESP 16; TEMP 97.3; O2SAT 95
[2016-10-22 11:53] VITALS: Ht 175.3 cm; Wt 88.5 kg
[2016-10-22] MEDS ORDERED: ONDANSETRON 4mg/2ml INJECTION IV PRN (13:00)
[2016-10-22] MEDS ORDERED: PRN ORDERS MC (13:00)
[2016-10-22] MEDS ORDERED: MORPHINE SULFATE 4 MG SYRINGE IV PRN (13:00)
[2016-10-22 13:40] VITALS: PULSE 54
[2016-10-22] MEDS ORDERED: ALBUTEROL INH.SOLN. 2.5mg/3ml (0.083%) Neb. AEROSOL PRN (15:00)
[2016-10-22] MEDS ORDERED: TRAMADOL 50 MG TABLET PO PRN (15:00)
[2016-10-22] MEDS ORDERED: NITROGLYCERIN 0.4 MG SUBLINGUAL TABLET SL PRN (15:00)
--- NOTE | 2016-10-22 15:01 | HPPDOC ---
REINA CORTEZ CONSERVATION ENGINEER 10/22/16 1448: HPI - Adult Date DATE: 10/22/16 TIME: 14:45 General Date of Admission Date of Admission: October 22, 2016 at 11:01 Chief Complaint: chest pain History of Present Illness Jose Alfredo is a 56-year-old male who is well known to Dr. Remy with a history of CAD with 5 stents placed in the past., HLD and nicotine dependence who presented to ED with chest pain. He noted onset of symptoms between 1 and 2 AM today, and describes the pain as a very mild pressure sensation in his chest without current radiation. Earlier today the pain did radiate toward his neck. He denies any other complaints or associated symptoms. Symptoms have been persistent in nature since onset. He does not note any exacerbating or remitting factors at this time. His last heart cath was in [address] Remy who is his refrigeration installer. Past Medical History Past Medical History Metabolic: hypercholesterolemia Cardiac: CAD Musculoskeletal: back pain, other Surgical History General: back, neck Cardiac: cardiac cath, cardiac stent Joint: knee, shoulder Current Medications Home Meds Reported Medications Albuterol Sulfate (Ventolin HFA 90 mcg/actuation) 18 Gm Hfa.aer.ad, 2 PUFF ORAL INH Q4-6H Y for SHORTNESS OF AIR/WHEEZING 10/22/16 Atorvastatin Calcium (Atorvastatin Calcium) 40 Mg Tablet, 40 MG PO DAILY 10/22/16 Isosorbide Mononitrate (Isosorbide Mononitrate ER) 30 Mg Tab.er.24h, 30 MG PO DAILY TAKE WITH 60 MG TO EQUAL 90 MG DAILY 10/22/16 Isosorbide Mononitrate (Isosorbide Mononitrate ER) 60 Mg Tab.er.24h, 30 MG PO DAILY TAKE WITH 60 MG TO EQUAL 90 MG DAILY 10/22/16 Hydrocodone/Apap ([place] 10-325 Tablet) 10-325 Tablet, 1 TAB PO Q6H Y for PAIN 10/22/16 Clopidogrel Bisulfate (Plavix) 75 Mg Tablet, 75 MG PO DAILY 10/07/12 Metoprolol Tartrate (Metoprolol Tartrate) 25 Mg Tablet, 25 MG PO BID 10/07/12 Nitroglycerin (Nitroglycerin) 0.4 Mg Tab.subl, 0.4 MG SL Q5MIN Y for CHEST PAIN 08/11/12 Tramadol Hcl (Tramadol Hcl) 50 Mg Tablet, 50 MG PO QID Y 08/08/12 Methocarbamol (Robaxin-750) 750 Mg Tablet, 750 MG PO Q6H 09/07/08 Aspirin (Aspir 81) 81 Mg Tablet.dr, 81 MG PO DAILY 09/07/08 Allergies: Coded Allergies: No Known Allergies (Unverified , 10/22/16) Family History FOUND: [place], diabetes, hypertension Vaccines NOT REC'D fall 2015 Social History Smoking Status: Current every day smoker Marital Status: Sexuality: female partner Housing: house Current Occupational Status: employed Advance Directives: No DPOA for Healthcare Only Review of Systems Constitutional: DENIES: chills, dizziness, fever, weakness Eyes Vision: DENIES: vision changes ENMT Hearing: DENIES: tinnitus Balance: DENIES: vertigo Mouth/Throat: DENIES: sore throat Cardiovascular chest pain, DENIES: dyspnea on exertion, murmur, orthopnea, paroxysmal nocturnal dysp Rhythm/Rate: irregular beat (occasionally), palpitations (occasionally) Vascular: DENIES: pedal edema Pulmonary Respiratory: DENIES: cough, sputum GI Upper Abdomen: DENIES: nausea, vomiting Lower Abdomen: DENIES: blood in stool, diarrhea General: DENIES: dysuria Integumentary Skin: DENIES: rash, sores Neurological General: DENIES: headache, numbness, seizures, syncope, weakness All Other Systems All Other Systems: Reviewed (remainder of 10-point ROS Neg.) Physical Exam General General Nourishment: well nourished, well developed, apparent age Vital Signs Vital Signs Date Time Temp Pulse Resp B/P Pulse Ox O2 Delivery O2 Flow Rate FiO2 10/22/16 13:40 54 10/22/16 12:34 12 10/22/16 11:50 97.3 126/80 95 Room Air Height (Feet): 5 Height (Inches): 9.00 Telemetry Rhythm: Sinus Rhythm ENMT Brief: FOUND: mucosa moist Neck Brief: NOT FOUND: JVD, carotid bruits Respiratory Brief: FOUND: clear all cheng, equal bilaterally, NOT FOUND: rales , wheezes Cardiovascular (brief) Cardiac Brief: FOUND: regular rate, regular rhythm, NOT FOUND: click, gallop, murmur, pedal edema Abdomen (brief) Abdominal Brief: FOUND: BS normo active x4, soft, NOT FOUND: tender Integumentary (brief) Integumentary Brief: FOUND: dry, pink, warm Neurologic RN Documented GCS Eye Opening: Verbal: Motor: Total: Laboratory Laboratory Tests Test 10/22/16 10:30 White Blood Count 10.5T/MM3 Red Blood Count 5.02M/MM3 Hemoglobin 15.8GM/DL Hematocrit 43.9% Mean Corpuscular Volume 87.5UM3 Mean Corpuscular Hemoglobin 31.5UUG Mean Corpuscular Hemoglobin Concent 36.0GM/DL RDW Standard Deviation 39.5FL Platelet Count 165T/MM3 Mean Platelet Volume 10.7UM3 Immature Granulocyte % (Auto) 0.4% Neutrophils (%) (Auto) 52.7% Lymphocytes (%) (Auto) 37.7% Monocytes (%) (Auto) 5.9% Eosinophils (%) (Auto) 2.7% Basophils (%) (Auto) 0.6% Absolute Immature Granulocyte (auto 0.04T/MM3 Absolute Neutrophils (auto) 5.6T/MM3 Absolute Lymphocytes (auto) 4.0T/MM3 Absolute Monocytes (auto) 0.6T/MM3 Absolute Eosinophils (auto) 0.3T/MM3 Absolute Basophils (auto) 0.1T/MM3 Turbidity 30 Sodium Level 141MEQ/L Potassium Level 3.8MEQ/L Chloride Level 105MEQ/L Carbon Dioxide Level 24MEQ/L Anion Gap 12MEQ/L Blood Urea Nitrogen 12.0MG/DL Creatinine 0.7MG/DL Glomerular Filtration Rate Calc 118 BUN/Creatinine Ratio 17RATIO Glucose Level 123MG/DL Calculated Osmolality 272MOSM/KG Calcium Level 9.2MG/DL Total Bilirubin 0.60MG/DL Icterus Index < 2 Aspartate Amino Transf (AST/SGOT) 27U/L Alanine Aminotransferase (ALT/SGPT) 50U/L Alkaline Phosphatase 70U/L Troponin I < 0.012ng/ml Total Protein 6.9G/DL Albumin 4.6G/DL Globulin 2.3G/DL Albumin/Globulin Ratio 2.0RATIO Chemistry Specimen Hemolysis 31 Laboratory Tests Test 10/22/16 10:30 White Blood Count 10.5T/MM3 Red Blood Count 5.02M/MM3 Hemoglobin 15.8GM/DL Hematocrit 43.9% Mean Corpuscular Volume 87.5UM3 Mean Corpuscular Hemoglobin 31.5UUG Mean Corpuscular Hemoglobin Concent 36.0GM/DL RDW Standard Deviation 39.5FL Platelet Count 165T/MM3 Mean Platelet Volume 10.7UM3 Immature Granulocyte % (Auto) 0.4% Neutrophils (%) (Auto) 52.7% Lymphocytes (%) (Auto) 37.7% Monocytes (%) (Auto) 5.9% Eosinophils (%) (Auto) 2.7% Basophils (%) (Auto) 0.6% Absolute Immature Granulocyte (auto 0.04T/MM3 Absolute Neutrophils (auto) 5.6T/MM3 Absolute Lymphocytes (auto) 4.0T/MM3 Absolute Monocytes (auto) 0.6T/MM3 Absolute Eosinophils (auto) 0.3T/MM3 Absolute Basophils (auto) 0.1T/MM3 Turbidity 30 Sodium Level 141MEQ/L Potassium Level 3.8MEQ/L Chloride Level 105MEQ/L Carbon Dioxide Level 24MEQ/L Anion Gap 12MEQ/L Blood Urea Nitrogen 12.0MG/DL Creatinine 0.7MG/DL Glomerular Filtration Rate Calc 118 BUN/Creatinine Ratio 17RATIO Glucose Level 123MG/DL Calculated Osmolality 272MOSM/KG Calcium Level 9.2MG/DL Total Bilirubin 0.60MG/DL Icterus Index < 2 Aspartate Amino Transf (AST/SGOT) 27U/L Alanine Aminotransferase (ALT/SGPT) 50U/L Alkaline Phosphatase 70U/L Troponin I < 0.012ng/ml Total Protein 6.9G/DL Albumin 4.6G/DL Globulin 2.3G/DL Albumin/Globulin Ratio 2.0RATIO Chemistry Specimen Hemolysis 31 EKG SR, no ischemic ST changes Radiology DATE OF EXAM: 10/22/16 ORDERING DOCTOR: MIGUEL PICHARDO DO TYPE OF EXAM: CHEST 1 VIEW REASON FOR EXAM: cp Indication: ITS.REASON: cp CHEST 1 VIEW: Comparison: August 08 2012 Technique: Single AP portable upright chest Findings: Patient continues to show normal heart, mediastinum and central vascularity. Lungs are clear. Postop changes of a right shoulder replacement are present. Impression: No active cardiopulmonary abnormality. Assessment & Plan Problems: (1) Precordial chest pain Status: Acute Assessment & Plan: Awoke in the night with sternal chest pain, some radiation into the neck. relieved by nitro SL. Current troponin negative, EKG without ST changes indicative of ischemia. Continue to monitor, trend serial troponin levels and possible Heart cath tomorrow due to symptoms of unstable angina. (2) Coronary artery disease Status: Chronic Qualifiers: Coronary Disease-Associated Artery/Lesion type: koi artery [place] vs. transplanted heart: koi heart Associated angina: with stable angina Qualified Codes: I25.118 - Atherosclerotic heart disease of koi coronary artery with other forms of angina pectoris Assessment & Plan: RCA stents X3 08/2012, Cx X2 10/2012, Last cath 2014 (3) Mixed hyperlipidemia Status: Chronic Assessment & Plan: continue Atorvastatin (4) Nicotine dependence Status: Chronic Qualifiers: Nicotine product type: cigarettes Substance use status: uncomplicated Qualified Codes: F17.210 - Nicotine dependence, cigarettes, uncomplicated Assessment & Plan: Dr. Remy discussed importance of tobacco cessation with the patient in the presence of multiple family members. Plan/Intensity of Service CP: Current troponin negative, EKG without ST changes indicative of ischemia. Continue to monitor, trend serial troponin levels and possible Heart cath tomorrow due to symptoms of unstable angina. DVT Prophylaxis: Lovenox Code Status Full Code Hospital Course Summary Disclaimer The hospital course summary below is not to be considered part of the above Progress Note. ANA REMY MD 10/26/16 1613: Past Medical History Current Medications Home Meds Reported Medications Albuterol Sulfate (Ventolin HFA 90 mcg/actuation) 18 Gm Hfa.aer.ad, 2 PUFF ORAL INH Q4-6H Y for SHORTNESS OF AIR/WHEEZING 10/22/16 Atorvastatin Calcium (Atorvastatin Calcium) 40 Mg Tablet, 40 MG PO DAILY 10/22/16 Isosorbide Mononitrate (Isosorbide Mononitrate ER) 30 Mg Tab.er.24h, 30 MG PO DAILY TAKE WITH 60 MG TO EQUAL 90 MG DAILY 10/22/16 Isosorbide Mononitrate (Isosorbide Mononitrate ER) 60 Mg Tab.er.24h, 30 MG PO DAILY TAKE WITH 60 MG TO EQUAL 90 MG DAILY 10/22/16 Hydrocodone/Apap ([place] 10-325 Tablet) 10-325 Tablet, 1 TAB PO Q6H Y for PAIN 10/22/16 Clopidogrel Bisulfate (Plavix) 75 Mg Tablet, 75 MG PO DAILY 10/07/12 Metoprolol Tartrate (Metoprolol Tartrate) 25 Mg Tablet, 25 MG PO BID 10/07/12 Nitroglycerin (Nitroglycerin) 0.4 Mg Tab.subl, 0.4 MG SL Q5MIN Y for CHEST PAIN 08/11/12 Tramadol Hcl (Tramadol Hcl) 50 Mg Tablet, 50 MG PO QID Y 08/08/12 Methocarbamol (Robaxin-750) 750 Mg Tablet, 750 MG PO Q6H 09/07/08 Aspirin (Aspir 81) 81 Mg Tablet.dr, 81 MG PO DAILY 09/07/08 Allergies: Coded Allergies: No Known Allergies (Unverified , 10/22/16) Assessment & Plan Hospital Course Summary Hospital Course Summary After examining the patient I agree with the above assessment. I am involved in the formulation of the patient's plan of care. REINA CORTEZ APRN October 22, 2016 14:48 ANA REMY MD October 26, 2016 16:13
[2016-10-22] MEDS: ENOXAPARIN 40 MG/0.4 ML INJECTION SQ SCH (15:33)
[2016-10-22] MEDS: METHOCARBAMOL 750 MG TABLET PO SCH ×2 (15:33→21:19)
[2016-10-22 16:02] VITALS: BP 114/67; PULSE 57; RESP 18; TEMP 96.7; O2SAT 96
[2016-10-22 17:39] VITALS: PULSE 64
--- NOTE | 2016-10-22 18:39 | NUR ---
STATUS PT UP AD DONNIE. DENIES PAIN. FRIENDLY AND COOPERATIVE. IV LOCKED. ON ROOM AIR. WILL HAVE HEART CATH IN THE MORNING. NPO AT MIDNIGHT. PT VERBALIZED UNDERSTANDING. HAS HAD 5 STENTS IN THE PAST. WELL KNOWN TO DR REMY. WILL CONTINUE TO MONITOR
[2016-10-22 20:00] VITALS: PULSE 57
[2016-10-22] MEDS ORDERED: ATORVASTATIN 40 MG TABLET PO SCH (22:00)
[2016-10-22 23:35] VITALS: BP 120/78; PULSE 60; RESP 16; TEMP 97.1; O2SAT 95
[2016-10-23] VITALS (14 sets, daily range): BP systolic 105–123; BP diastolic 59–79; PULSE 51–62; RESP 16–17; TEMP 97.1–97.8; O2SAT 92–95
[2016-10-23] MEDS: METHOCARBAMOL 750 MG TABLET PO SCH ×2 (03:00→10:13)
--- NOTE | 2016-10-23 04:27 | NUR ---
SUMMARY A&O X3. AD DONNIE IN ROOM. PT WENT NPO AT MIDNIGHT FOR PROCEDURE THIS AM. PT REPORTED THE PAIN IN HIS CHEST TO ONLY BE A 1/10 BUT THE PAIN IN HIS BACK WAS 4/10, PT REQUESTED NORCO WITH EVENING MEDICATIONS. PT HAS HAD NO SIGNIFICANT EVENTS THIS SHIFT.
[2016-10-23 05:32] LABS: ANION GAP 11 MEQ/L (5-15); BUN/CREATININE RATIO 12 RATIO (6-26); CALCIUM 9.6 MG/DL (8.4-10.2); CHLORIDE 105 MEQ/L (98-107); CO2 - CARBON DIOXIDE 30 MEQ/L (22-30); CREATININE 0.9 MG/DL (0.8-1.5); GLOMERULAR FILTRATION RATE 88; GLUCOSE 89 MG/DL (75-110); POTASSIUM 3.9 MEQ/L (3.6-5); SODIUM 146 MEQ/L (134-144)
[2016-10-23 05:47] LABS: HCT - HEMATOCRIT 45.8 % (41-53); HGB - HEMOGLOBIN 16.1 GM/DL (13.5-17.5); MEAN CORPUSCULAR HGB 30.9 UUG (26-34); MEAN CORPUSCULAR HGB CONC(MCHC 35.2 GM/DL (31-37); MEAN CORPUSCULAR VOLUME 87.9 UM3 (80-100); MEAN PLATELET VOLUME 11.3 UM3 (9.4-12.4); RED BLOOD COUNT 5.21 M/MM3 (4.50-5.90); WBC - WHITE BLOOD COUNT 10.3 T/MM3 (4.5-11.0)
[2016-10-23] MEDS ORDERED: ISOSORBIDE MONONITRATE ER 30 MG TABLET PO SCH (06:30)
[2016-10-23] MEDS ORDERED: NORMAL SALINE 1,000 ML IV ONE (07:15)
[2016-10-23] MEDS ORDERED: LIDOCAINE 1% (10mg/ml) 30ml SDV ONE (07:20)
[2016-10-23] MEDS ORDERED: HEPARIN 1,000units in NS 500ml BAG IV ONE (07:20)
--- NOTE | 2016-10-23 07:27 | NUR ---
TRANSFER RECEIVED REPORT. PATIENT IS ALERT AND ORIENTED. DENIES CHEST PAIN OR ANY CONCERNS. PATIENT IS PICKED UP AND LEAVES TO BUS MECHANIC AT THIS TIME. VSYuliya. .
[2016-10-23] MEDS ORDERED: NITROGLYCERIN 50mg/10ml INJECTION IV ONE (07:28)
[2016-10-23] MEDS ORDERED: VERAPAMIL 5mg/2ml INJECTION IV ONE (07:28)
[2016-10-23] MEDS ORDERED: FENTANYL 100mcg/2ml INJECTION ONE (07:28)
[2016-10-23] MEDS ORDERED: MIDAZOLAM 2mg/2ml INJECTION ONE (07:28)
[2016-10-23] MEDS ORDERED: LORAZEPAM 0.5 MG TABLET PO PRN (08:00)
[2016-10-23] MEDS ORDERED: HYDROCODONE/APAP 5 mg/325 mg TABLET PO PRN (08:00)
[2016-10-23] MEDS ORDERED: ATROPINE 1 MG/ML VIAL IV PRN (08:00)
[2016-10-23] MEDS ORDERED: NITROGLYCERIN 0.4 MG SUBLINGUAL TABLET SL PRN (08:00)
[2016-10-23] MEDS ORDERED: METOCLOPRAMIDE 10mg/2ml INJECTION IV PRN (08:00)
[2016-10-23] MEDS ORDERED: ACETAMINOPHEN 325 MG TABLET PO PRN (08:00)
[2016-10-23] MEDS ORDERED: PROMETHAZINE 25 MG INJECTION IV PRN (08:00)
[2016-10-23] MEDS ORDERED: MORPHINE SULFATE 4 MG SYRINGE IV PRN ×2 (08:00)
[2016-10-23] MEDS ORDERED: BISACODYL 10 MG SUPPOSITORY RECTALLY PRN (08:00)
[2016-10-23] MEDS ORDERED: BISACODYL 5 MG E.C. TABLET PO PRN (08:00)
[2016-10-23] MEDS ORDERED: ONDANSETRON 4mg/2ml INJECTION IV PRN (08:00)
[2016-10-23] MEDS ORDERED: LORAZEPAM 2 MG/ML INJECTION IV PRN (08:00)
[2016-10-23] MEDS ORDERED: MILK OF MAGNESIA 30 ML SUSP PO PRN (08:00)
[2016-10-23] MEDS ORDERED: MAG-AL + SIM LIQUID 30 ML UDC PO PRN (08:00)
--- NOTE | 2016-10-23 08:05 | NUR ---
ARRIVAL PATIENT ARRIVED TO SURGICAL UNIT ROOM 124 AT THIS TIME VIA CART AND CONTINUOUS VULCANIZING MACHINE OPERATOR STAFF. PATIENT ABLE TO TRANSFER SELF OVER TO SURGICAL UNIT FROM CART. A/OX3. ROOM AIR. POST OP VITALS BEGAN. FIRST SET STABLE. SINUS HANNAH NOTED ON TELE. RIGHT WRIST CLEAN, DRY, INTACT. NO S/S OF BLEEDING, HEMATOMA, OR EDEMA. DENIES PAIN, N/V, AND CHEST PAIN. WILL CONTINUE TO MONITOR.
[2016-10-23] MEDS ORDERED: ASPIRIN *EC* 81mg TABLET PO SCH (09:00)
[2016-10-23] MEDS ORDERED: CLOPIDOGREL 75 MG TABLET PO SCH (09:00)
[2016-10-23] MEDS ORDERED: ASPIRIN 81 MG CHEWABLE TABLET PO SCH (09:00)
--- NOTE | 2016-10-23 09:20 | DSPDOC ---
General Date Date DATE: 10/23/16 TIME: 09:14 Attending Physician Shabbir Rabago MD Admitting Physician Shabbir Rabago MD Consulting Physician Admitting Diagnosis Chest Pain Discharge Diagnosis chest pain Laboratory Laboratory Tests Test 10/22/16 10:30 10/22/16 16:17 10/22/16 21:38 10/23/16 04:16 White Blood Count 10.5T/MM3 (4.5-11.0) 10.3T/MM3 (4.5-11.0) Red Blood Count 5.02M/MM3 (4.50-5.90) 5.21M/MM3 (4.50-5.90) Hemoglobin 15.8GM/DL (13.5-17.5) 16.1GM/DL (13.5-17.5) Hematocrit 43.9% (41-53) 45.8% (41-53) Mean Corpuscular Volume 87.5UM3 (80-100) 87.9UM3 (80-100) Mean Corpuscular Hemoglobin 31.5UUG (26-34) 30.9UUG (26-34) Mean Corpuscular Hemoglobin Concent 36.0GM/DL (31-37) 35.2GM/DL (31-37) RDW Standard Deviation 39.5FL (36.9-50.2) 39.8FL (36.9-50.2) Platelet Count 165T/MM3 (130-400) 155T/MM3 (130-400) Mean Platelet Volume 10.7UM3 (9.4-12.4) 11.3UM3 (9.4-12.4) Immature Granulocyte % (Auto) 0.4% (0.0-0.5) Neutrophils (%) (Auto) 52.7% (33-66) Lymphocytes (%) (Auto) 37.7% (23-45) Monocytes (%) (Auto) 5.9% (0-9.0) Eosinophils (%) (Auto) 2.7% (0-4) Basophils (%) (Auto) 0.6% (0-2) Absolute Immature Granulocyte (auto 0.04T/MM3 (0.00-0.03) Absolute Neutrophils (auto) 5.6T/MM3 (1.8-7.7) Absolute Lymphocytes (auto) 4.0T/MM3 (1-4.8) Absolute Monocytes (auto) 0.6T/MM3 (0-0.8) Absolute Eosinophils (auto) 0.3T/MM3 (0-0.5) Absolute Basophils (auto) 0.1T/MM3 (0-0.2) Turbidity 30 (0-20) < 20 (0-20) Sodium Level 141MEQ/L (134-144) 146MEQ/L (134-144) Potassium Level 3.8MEQ/L (3.6-5) 3.9MEQ/L (3.6-5) Chloride Level 105MEQ/L (98-107) 105MEQ/L (98-107) Carbon Dioxide Level 24MEQ/L (22-30) 30MEQ/L (22-30) Anion Gap 12MEQ/L (5-15) 11MEQ/L (5-15) Blood Urea Nitrogen 12.0MG/DL (9-20) 11.0MG/DL (9-20) Creatinine 0.7MG/DL (0.8-1.5) 0.9MG/DL (0.8-1.5) Glomerular Filtration Rate Calc 118 88 BUN/Creatinine Ratio 17RATIO (6-26) 12RATIO (6-26) Glucose Level 123MG/DL (75-110) 89MG/DL (75-110) Calculated Osmolality 272MOSM/KG (261-280) 279MOSM/KG (261-280) Calcium Level 9.2MG/DL (8.4-10.2) 9.6MG/DL (8.4-10.2) Total Bilirubin 0.60MG/DL (0.20-1.30) Icterus Index < 2 (0-7) < 2 (0-7) Aspartate Amino Transf (AST/SGOT) 27U/L (17-59) Alanine Aminotransferase (ALT/SGPT) 50U/L (21-72) Alkaline Phosphatase 70U/L (38-126) Troponin I < 0.012ng/ml (0-0.12) < 0.012ng/ml (0-0.12) < 0.012ng/ml (0-0.12) < 0.012ng/ml (0-0.12) Total Protein 6.9G/DL (6.3-8.2) Albumin 4.6G/DL (3.5-5.0) Globulin 2.3G/DL (2.4-3.6) Albumin/Globulin Ratio 2.0RATIO (1.1-2.2) Chemistry Specimen Hemolysis 31 (0-25) 17 (0-25) < 15 (0-25) < 15 (0-25) Radiology DATE OF EXAM: 10/22/16 ORDERING DOCTOR: MIGUEL PICHARDO DO TYPE OF EXAM: CHEST 1 VIEW REASON FOR EXAM: cp Indication: ITS.REASON: cp CHEST 1 VIEW: Comparison: August 08 2012 Technique: Single AP portable upright chest Findings: Patient continues to show normal heart, mediastinum and central vascularity. Lungs are clear. Postop changes of a right shoulder replacement are present. Impression: No active cardiopulmonary abnormality. History of Present Illness Jose Alfredo is a 56-year-old male who is well known to Dr. Rabago with a history of CAD with 5 stents placed in the past., HLD and nicotine dependence who presented to ED with chest pain. He noted onset of symptoms between 1 and 2 AM today, and describes the pain as a very mild pressure sensation in his chest without current radiation. Earlier today the pain did radiate toward his neck. He denies any other complaints or associated symptoms. Symptoms have been persistent in nature since onset. He does not note any exacerbating or remitting factors at this time. His last heart cath was in [address] 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 Objective Vital Signs Vital signs Vital Signs 10/22/16 10/23/16 10/23/16 10/23/16 23:35 07:27 07:28 08:15 Temp 97.1 97.1 97.8 Pulse 60 62 62 56 Resp 16 16 16 17 B/P 120/78 122/76 105/59 Pulse Ox 95 92 93 O2 Delivery Room Air Room Air Room Air 10/23/16 10/23/16 10/23/16 10/23/16 08:30 08:32 08:45 09:00 Pulse 54 54 53 57 B/P 106/66 108/70 110/71 Pulse Ox 94 93 95 O2 Delivery Room Air Room Air Room Air Telemetry Rhythm: Sinus Rhythm Height (Feet): 5 Height (Inches): 9.00 Weight (Kilograms): 88.500 General Alert, Orientated x 3, Cooperative ENMT (Brief) mucosa moist Neck (Brief) NOT FOUND: JVD, carotid bruits Respiratory (Brief) clear all cheng, equal bilaterally, NOT FOUND: rales, wheezes Cardiovascular (Brief) regular rate, regular rhythm, NOT FOUND: click, gallop, murmur, pedal edema, rub Abdomen (Brief) BS normo active x4, soft, NOT FOUND: tender Integumentary (Brief) dry, pink, warm Psychiatric (Brief) alert, attentive, normal affect, oriented Laboratory Laboratory Laboratory Tests Test 10/22/16 10:30 10/22/16 16:17 10/22/16 21:38 10/23/16 04:16 White Blood Count 10.5T/MM3 10.3T/MM3 Red Blood Count 5.02M/MM3 5.21M/MM3 Hemoglobin 15.8GM/DL 16.1GM/DL Hematocrit 43.9% 45.8% Mean Corpuscular Volume 87.5UM3 87.9UM3 Mean Corpuscular Hemoglobin 31.5UUG 30.9UUG Mean Corpuscular Hemoglobin Concent 36.0GM/DL 35.2GM/DL RDW Standard Deviation 39.5FL 39.8FL Platelet Count 165T/MM3 155T/MM3 Mean Platelet Volume 10.7UM3 11.3UM3 Immature Granulocyte % (Auto) 0.4% Neutrophils (%) (Auto) 52.7% Lymphocytes (%) (Auto) 37.7% Monocytes (%) (Auto) 5.9% Eosinophils (%) (Auto) 2.7% Basophils (%) (Auto) 0.6% Absolute Immature Granulocyte (auto 0.04T/MM3 Absolute Neutrophils (auto) 5.6T/MM3 Absolute Lymphocytes (auto) 4.0T/MM3 Absolute Monocytes (auto) 0.6T/MM3 Absolute Eosinophils (auto) 0.3T/MM3 Absolute Basophils (auto) 0.1T/MM3 Turbidity 30 < 20 Sodium Level 141MEQ/L 146MEQ/L Potassium Level 3.8MEQ/L 3.9MEQ/L Chloride Level 105MEQ/L 105MEQ/L Carbon Dioxide Level 24MEQ/L 30MEQ/L Anion Gap 12MEQ/L 11MEQ/L Blood Urea Nitrogen 12.0MG/DL 11.0MG/DL Creatinine 0.7MG/DL 0.9MG/DL Glomerular Filtration Rate Calc 118 88 BUN/Creatinine Ratio 17RATIO 12RATIO Glucose Level 123MG/DL 89MG/DL Calculated Osmolality 272MOSM/KG 279MOSM/KG Calcium Level 9.2MG/DL 9.6MG/DL Total Bilirubin 0.60MG/DL Icterus Index < 2 < 2 Aspartate Amino Transf (AST/SGOT) 27U/L Alanine Aminotransferase (ALT/SGPT) 50U/L Alkaline Phosphatase 70U/L Troponin I < 0.012ng/ml < 0.012ng/ml < 0.012ng/ml < 0.012ng/ml Total Protein 6.9G/DL Albumin 4.6G/DL Globulin 2.3G/DL Albumin/Globulin Ratio 2.0RATIO Chemistry Specimen Hemolysis 31 17 < 15 < 15 Laboratory Tests 10/22/16 10:30 10/23/16 04:16 Laboratory Tests 10/22/16 10:30 10/23/16 04:16 EKG SR, no ischemic STT changes Medications Current Medications Aspirin (ASA) 324 mg DAILY PO Last administered on 10/22/16 11:32; Start 10/23 at 09:00; Stop 10/23/16 at 09:00; Status DC Miscellaneous Medication (May use PRN orders) 1 PRN PRN MC ; Start 10/22/16 at 13:00 Albuterol Sulfate (Proventil 2.5 Mg/3 ml) 2.5 mg Q4-6H PRN AEROSOL SHORTNESS OF AIR/WHEEZING; Start 10/22/16 at 15:00 Aspirin (Ecotrin) 81 mg DAILY PO ; Start 10/23/16 at 09:00 Atorvastatin Calcium (LIPITOR 40 mg) 40 mg HS PO Last administered on 21:19; Start 10/22/16 at 22:00 Clopidogrel Bisulfate (Plavix) 75 mg DAILY PO ; Start 10/23/16 at 09:00 Acetaminophen/ Hydrocodone Bitart ([place] 10/325) 1 tab Q6H PRN PO PAIN Last administered on 10/22/16 21:20; Start 10/22/16 at 15:00 Isosorbide Mononitrate (Imdur) 30 mg ACB PO Last administered on 10/23/16 06: 31; Start 10/23/16 at 06:30 Methocarbamol (Robaxin) 750 mg Q6H PO Last administered on 10/22/16 21:19; Start 10/22/16 at 15:00 Metoprolol Tartrate (Lopressor) 25 mg BIDWM PO Last administered on 10/22/16 17:39; Start 10/22/16 at 17:30 Tramadol HCl (Ultram) 50 mg QID PRN PO ; Start 10/22/16 at 15:00 Enoxaparin Sodium 40 mg 40 mg DAILY SQ Last administered on 10/22/16 15:33; Start 10/22/16 at 15:15 Sodium Chloride (Normal Saline IV) 1,000 ml @ 75 mls/hr [id number] ONCE IV Last administered on 10/23/16 07:21; Start 10/23/16 at 07:15; Stop 10/23/16 at 20:34 Heparin Sodium/ Sodium Chloride (HEPARIN 1,000units in NS 500ml) 1,000 unit STK- MED ONCE IV ; Start 10/23/16 at 07:20; Stop 10/23/16 at 07:21; Status DC Lidocaine HCl (Xylocaine 1%) 300 mg STK-MED ONCE .ROUTE ; Start 10/23/16 at 07: 20; Stop 10/23/16 at 07:21; Status DC Iodixanol (Visipaque) 1 bottle STK-MED ONCE IV ; Start 10/23/16 at 07:22; Stop 10/23/16 at 07:23; Status DC Fentanyl (Fentanyl) 100 mcg STK-MED ONCE .ROUTE ; Start 10/23/16 at 07:28; Stop 10/23/16 at 07:29; Status DC Midazolam HCl (Versed) 2 mg STK-MED ONCE .ROUTE ; Start 10/23/16 at 07:28; Stop 10/23/16 at 07:29; Status DC Verapamil HCl (Verapamil) 5 mg STK-MED ONCE IV ; Start 10/23/16 at 07:28; Stop 10/23/16 at 07:29; Status DC Nitroglycerin (Nitroglycerin) 50 mg STK-MED ONCE IV ; Start 10/23/16 at 07:28; Stop 10/23/16 at 07:29; Status DC Heparin Sodium (Porcine) (Heparin Bolus) 10,000 unit STK-MED ONCE IV ; Start at 07:29; Stop 10/23/16 at 07:30; Status DC Atropine Sulfate (ATROPINE 1mg INJ) 0.5 mg Q5M PRN IV pulse < 40 bmp AND symptomatic; Start 10/23/16 at 08:00 Acetaminophen (Tylenol Regular Strength) 325-650 mg Q5H PRN PO PAIN; Start at 08:00 Morphine Sulfate (Morphine) 2-4 mg Q5MIN PRN IV ANGINA; Start 10/23/16 at 08:00 Acetaminophen/ Hydrocodone Bitart ([place] 5/325) 1-2 tabs Q5H PRN PO PAIN; Start 10/23/16 at 08:00 Promethazine HCl (Phenergan) 12.5-25 mg Q6H PRN IV NAUSEA &/OR VOMITING; Start 10/23/16 at 08:00 Nitroglycerin (Nitrostat) 0.4 mg Q5MIN PRN SL ANGINA; Start 10/23/16 at 08:00 Magnesium Hydroxide (Mom) 30 ml DAILY PRN PO CONSTIPATION; Start 10/23/16 at 08 :00 Bisacodyl (Dulcolax) 5-10 mg DAILY PRN PO CONSTIPATION; Start 10/23/16 at 08:00 Al Hydroxide/Mg Hydroxide (Maalox) 30 ml Q3H PRN PO INDIGESTION; Start at 08:00 Lorazepam (Ativan) 0.5-1 mg Q4H PRN IV ANXIETY; Start 10/23/16 at 08:00 Metoclopramide HCl (REGLAN Inj) 5-10 mg Q6H PRN IV NAUSEA &/OR VOMITING; Start 10/23/16 at 08:00 Ondansetron HCl (Zofran) 4 mg Q6H PRN IV NAUSEA &/OR VOMITING; Start 10/23/16 at 08:00 Hospital Course Jose Alfredo was admitted to observation for unstable angina. He was placed NPO at midnight and taken this morning to the cardiac catheterization lab for transradial left heart cath. No new disease seen, no interventions performed. Problems: (1) Precordial chest pain Status: Acute (2) Coronary artery disease Status: Chronic (3) Mixed hyperlipidemia Status: Chronic (4) Nicotine dependence Status: Chronic Code Status Full Code Home Meds Reported Medications Albuterol Sulfate (Ventolin HFA 90 mcg/actuation) 18 Gm Hfa.aer.ad, 2 PUFF ORAL INH Q4-6H Y for SHORTNESS OF AIR/WHEEZING 10/22/16 Atorvastatin Calcium (Atorvastatin Calcium) 40 Mg Tablet, 40 MG PO DAILY 10/22/16 Isosorbide Mononitrate (Isosorbide Mononitrate ER) 30 Mg Tab.er.24h, 30 MG PO DAILY TAKE WITH 60 MG TO EQUAL 90 MG DAILY 10/22/16 Isosorbide Mononitrate (Isosorbide Mononitrate ER) 60 Mg Tab.er.24h, 30 MG PO DAILY TAKE WITH 60 MG TO EQUAL 90 MG DAILY 10/22/16 Hydrocodone/Apap ([place] 10-325 Tablet) 10-325 Tablet, 1 TAB PO Q6H Y for PAIN 10/22/16 Clopidogrel Bisulfate (Plavix) 75 Mg Tablet, 75 MG PO DAILY 10/07/12 Metoprolol Tartrate (Metoprolol Tartrate) 25 Mg Tablet, 25 MG PO BID 10/07/12 Nitroglycerin (Nitroglycerin) 0.4 Mg Tab.subl, 0.4 MG SL Q5MIN Y for CHEST PAIN 08/11/12 Tramadol Hcl (Tramadol Hcl) 50 Mg Tablet, 50 MG PO QID Y 08/08/12 Methocarbamol (Robaxin-750) 750 Mg Tablet, 750 MG PO Q6H 09/07/08 Aspirin (Aspir 81) 81 Mg Tablet.dr, 81 MG PO DAILY 09/07/08 Discharge Disposition discharged to home in the care of himself in good and stable condition to follow up with Dinora BAIRD on 11/08/16 at 10:30am. Copies To 1: MUKESH HEBERT II, MD, AMY M APRN October 23, 2016 09:17
--- NOTE | 2016-10-23 09:32 | CVPROF ---
DATE OF PROCEDURE October 23, 2016 The patient is a pleasant 56-year-old gentleman with history of coronary artery disease who was admitted with symptoms of unstable angina and was referred for further evaluation by cardiac catheterization and possible intervention. Informed consent was obtained after explaining the procedure and the potential risks to the patient who agreed to proceed with the procedure. PROCEDURE 1. Left heart catheterization. 2. Coronary angiography. 3. Left ventriculography. TECHNIQUE He was prepped and draped in the usual sterile techniques. Conscious sedation was performed using Versed and fentanyl. 1% lidocaine was used for local anesthesia. Using modified Seldinger technique, arterial access was obtained into the right radial artery with placement of a 6-Sammarinese arterial sheath. 3000 units of heparin, 300 mcg of nitroglycerin, and 2.5 mg of verapamil were given through the arterial sheath. LEFT VENTRICULOGRAPHY Left ventriculography in single-plane WOODS shallow projection showed normal LV systolic function with ejection fraction of 65% with no mitral regurgitation or gradient across the aortic valve. LVEDP was about 13. CORONARY ANGIOGRAPHY Left main was free of significant lesions. Left anterior descending artery had mid disease of about 30-40% stenosis. First diagonal was free of significant lesions. Second diagonal had ostial 50% stenosis. Left circumflex artery had an endovascular stent which was widely patent. Circumflex artery distal to the first marginal had about 70-75% stenosis, however it leads into a small caliber marginal. Right coronary artery appears to be dominant with an endovascular stent which was widely patent. There is no significant stenosis in RCA except for minor irregularities. The patient tolerated the procedure well with no complications. IMPRESSION 1. Normal LV systolic function with ejection fraction of 65%. 2. Coronary artery disease as described above with patent stents. PLAN Will continue medical management. The patient's symptoms may have been related to a lesion in the circumflex distal to the marginal. However, intervention on circumflex certainly would compromise the blood flow into the large proximal marginal. Circumflex leads to a small marginal distally. Also, symptoms could have been related to acid reflux since it was at rest and woke him up from sleep. The patient may require noncardiac chest pain workup at some point if clinically indicated. KYLAH
[2016-10-23] MEDS: ENOXAPARIN 40 MG/0.4 ML INJECTION SQ SCH (10:13)
--- NOTE | 2016-10-23 11:03 | NUR ---
DISMISSAL PATIENT DISMISSED TO HOME FOR SELF-CARE TO THE MAIN HOSPITAL ENTRANCE. PT AMBULATORY. 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 PT DID NOT APPEAR TO BE IN ACUTE DISTRESS AT TIME OF DISCHARGE. LAST VS STABLE AND PT ON ROOM AIR. IV CATHETER REMOVED BY THIS RN AND IV CATHETER TIP INTACT. D/C INSTRUCTIONS REVIEWED WITH PT AND . BOTH VERBALIZED UNDERSTANDING. TOPICS DISCUSSED INCLUDED: NEW MEDICATIONS, S/S TO REPORT, FOLLOW UP APPOINTMENTS, TR BAND SITE CARE.
--- NOTE | 2016-10-23 11:45 | NUR ---
CM PATIENT HAD DISCHARGED PRIOR TO CM VISITING.
--- OUTSIDE RECORDS SUMMARY | 2016-10-24 07:06 | XMS REPORT | Continuity of Care Document ---
Author Author [facility] LIVE Organization [facility] LIVE Address Unknown Phone Unavailable Support Name Relationship Address Phone MUKESH HEBERT II, MD Caregiver [address] [facility] [phone] RAN PATEL MD Caregiver [facility] [place] [phone] ROULA GOODMAN Next Of Kin [address] [id number] Insurance Providers Payer Name Policy Number Subscriber Name Relationship [facility] [id number] Jose Alfredo Goodman 20 Self Advance Directives [...] F (96.8 - 99.1) Temperature (Calculated Celsius) [phone] degrees C (36.0 - 37.3) Pulse Rate [...] WHEN PT IS HERE/ PLEASE FAX TO [phone] Cholesterol/HDL Ratio August 12, 2012 12:00pm 7.1 RATIO H 0-5.0 COMMENT WILL CALL WHEN PT IS ADMITTEDCOMMENT WILL CALL WHEN PT IS HERE/ PLEASE FAX TO [phone] Conjugated Bilirubin August 08, 2012 7:06pm 0.00 [...] WHEN PT IS HERE/ PLEASE FAX TO [phone] Lipase November 12, 2013 10:10am 67 U/L [...] WHEN PT IS HERE/ PLEASE FAX TO [phone] Troponin I August 09, 2012 1:32pm < [...] Has specimen been collected/obtained? Y Urine Specific [place] November 12, 2013 11:05am 1.020 - Has [...] WHEN PT IS HERE/ PLEASE FAX TO [phone] White Blood Count November 12, 2013 10:10am [...] WHEN PT IS HERE/ PLEASE FAX TO [phone] Turbidity November 12, 2013 10:10am < 20 0-20 Glomerular Filtration Rate Calc November 12, 2013 10:10am 142 - Immature Granulocyte # (Auto) November 12, 2013 10:10am 0.04 T/MM3 H 0.00- 0.03 Immature Granulocyte % (Auto) November 12, 2013 10:10am 0.3 % N 0.0-0.5 Icterus Index November 12, 2013 10:10am < 2 0-7 VG-Ujp-[id number]-Type Natriuretic Peptide August 08, 2012 7:06pm 32 [...] Encounters Encounter Location Date/Time Departed Emergency Room [facility] 04/04/14 11:40am Recent Diagnosis
--- OUTSIDE RECORDS SUMMARY | 2016-10-24 07:06 | XMS REPORT | Continuity of Care Document ---
Author Author [facility] Organization [facility] Address Unknown Phone Unavailable Support Name Relationship Address Phone ANA REMY MD Caregiver [address] [place] [address] [place] [address] Unavailable ANA REMY MD Caregiver [address] [place] [address] [place] [address] Unavailable MUKESH HEBERT II, MD Caregiver [address] [place] [address] Unavailable MIGUEL PICHARDO DO Caregiver [address] [place] [address] Unavailable ROULA GOODMAN Next Of Kin [address] [place] [address] Insurance Providers Guarantor Jose Alfredo Goodman Address [address] [place] [address] Email DENIED 16 Payer [facility] Policy Number [id number] Subscriber's Name Jose Alfredo Goodman Charlene Relationship 18 Self Group Number [id number] Advance Directives Directive Response Recorded Date/Time Advanced Directives Type None 11/12/13 10:05am Ordered Resuscitation Status Full Code 10/22/16 11:04am Resuscitation Documents on File No 10/22/16 11:55am DPOA for Healthcare Only No 10/22/16 3:01pm Living Will No 10/22/16 11:55am Problems Active Problems Medical Problem Onset Date Status Coronary artery disease Unknown Chronic Laceration Unknown Acute Laceration Unknown Acute Mixed hyperlipidemia Unknown Chronic Nicotine dependence Unknown Chronic Precordial chest pain Unknown Acute Right flank pain Unknown Acute Right flank pain Unknown Acute Medications Current Home Medications Medication Dose Units Route Directions Days Qty Instructions Start Date Acetaminophen/Hydrocodone Bitart ([place] 10-325 Tablet) 10-325 Tablet 1 Tab Oral Every 6 Hours as needed for Pain 10/22/16 Albuterol Sulfate (Ventolin Hfa 90 Mcg/Actuation) 18 Gm Hfa.aer.ad 2 Puff Oral Inhalation Every 4-6 Hours as needed for Shortness Of Air/Wheezing 10/22/16 Aspirin (Aspir 81) 81 Mg Tablet. 81 Mg Oral Daily 09/07/08 Atorvastatin Calcium 40 Mg Tablet 40 Mg Oral Daily 10/22/16 Clopidogrel Bisulfate (Plavix) 75 Mg Tablet 75 Mg Oral Daily 12/13 Isosorbide Mononitrate (Isosorbide Mononitrate Er) 30 Mg Tab.er.24h 30 Mg Oral Daily TAKE WITH 60 MG TO EQUAL 90 MG DAILY 10/22/16 Isosorbide Mononitrate (Isosorbide Mononitrate Er) 60 Mg Tab.er.24h 30 Mg Oral Daily TAKE WITH 60 MG TO EQUAL 90 MG DAILY 10/22/16 Methocarbamol (Robaxin-750) 750 Mg Tablet 750 Mg Oral Every 6 Hours 09/07/08 Metoprolol Tartrate 25 Mg Tablet 25 Mg Oral Twice A Day 10/07/12 Nitroglycerin 0.4 Mg Tab.subl 0.4 Mg Sublingual Every 5 Minutes X 3 as needed for Chest Pain 08/11/12 Tramadol Hcl 50 Mg Tablet 50 Mg Oral Four Times Daily as needed 08/08/12 Past Home Medications Medication Directions Ordered Status Albuterol Sulfate (Albuterol Sulfate Hfa) 8.5 Gm Hfa.aer.ad, As Needed Discontinued Isosorbide Mononitrate (Isosorbide Mononitrate Er) 30 Mg Tab.er.24h, 30 Mg Oral Daily 08/11/12 Discontinued Social History Social History Problem Response Recorded Date/Time Onset Date Status Reason for Hospitalization chest pain 10/23/2016 9:55am Not Applicable Not Applicable Chewing Tobacco Status No 11/12/2013 10:30am Not Applicable Not Applicable Hx Substance Use No 10/22/2016 10:31am Not Applicable Not Applicable Hx Alcohol Use No 10/22/2016 10:31am Not Applicable Not Applicable Has the pt used tobacco in the last 12 months Yes 10/22/2016 11:57am Not Applicable Not Applicable Tobacco Usage none 11/12/2013 11:24am Not Applicable Not Applicable Query Response Start Date Stop Date Smoking Status Former smoker Hospital Discharge Instructions Instructions: Care Instructions: I was in the hospital because (patient own words): I had an attack last night that lasted about 30 minutes, said to go ER Discharge Diet: Resume heart healthy diet Discharge Activity: Limit activity for 2 days. No lifting more than 10 pounds, no pushing or pulling for 1 week. Follow Up Appointments: Follow up with Dr. Remy on: 11/08/16 at 10:30 with Dinora BAIRD Pending Lab / Results: No Pending Lab Patient Instructions: Do not drive, operate machinery or drink alcohol for 2 days. Expected Signs/Symptoms: Bruising and tenderness at the site. Notify Physician If: Site is bleeding, abnormal drainage, increased pain or fever of 101.5 or more. During Business Hours:: Call Dr. Remy's office at [phone]. After Business Hours:: Please call [phone] and have the lathe setup operator page the physician. Pain Management/Treatment: Over the counter pain medication if needed. Wound/Incision Care: Remove dressing tomorrow. Keep site clean and dry. No tub baths or swimming for 1 week. You may shower. Condition at time of discharge: Good Plan of Care Discharge Date 10/23/16 11:03am Disposition 01 DISCHARGED HOME, SELF-CARE Instructions/Education Provided [facility] [place] Prescriptions See Medication Section Care Plan and Goals See Discharge Instructions Section Functional Status Query Response Date Recorded Mobility Status Ambulatory October 22, 2016 12:29pm Assistive Devices None October 22, 2016 12:29pm Activity Limitations None October 22, 2016 12:29pm Feeding Ability Independent October 22, 2016 12:29pm Toileting Ability Independent October 22, 2016 12:29pm Grooming Ability Independent October 22, 2016 12:29pm Dressing Ability Independent October 22, 2016 12:29pm Driving Ability Independent October 22, 2016 12:29pm Housework Ability Independent October 22, 2016 12:29pm Meal Preparation Ability Independent October 22, 2016 12:29pm Stair Climbing Ability Independent October 22, 2016 12:29pm Ability to complete ADL's impeded by No change October 22, 2016 12:29pm Cognitive/Perceptual Impairments Impaired vision October 22, 2016 12:29pm Visual Assistive Devices Glasses October 22, 2016 12:29pm Preferred Method of Learning Reading Demonstration October 22, 2016 12:29pm Allergies, Adverse Reactions, Alerts No known allergies. Immunizations Query Response on File Recorded Date/Time Hx Influenza Vaccination Y fall 201510/22/16 11:57am Hx Pneumococcal Vaccination Y fall 201510/22/16 11:57am Hx Tetanus, Diptheria, Pertussis Y 201104/04/14 12:09pm Hx Influenza Vaccination Y fall 201510/22/16 11:57am Hx Tetanus, Diptheria, Pertussis Y 201104/04/14 12:09pm Influenza Vaccine Hx NOT REC'D 10/22/16 10:31am Vital Signs Acute Vital Signs Vital Response Date/Time Temperature (Fahrenheit) 97.8 deg F (96.8 - 99.1) 10/23/2016 8:15am Temperature (Calculated Celsius) 36.98240 degrees C (36.0 - 37.3) 10/23/2016 8:15am Temperature Source Oral 10/23/2016 8:15am Pulse Rate (adult) 58 bpm (60 - 100) 10/23/2016 10:45am Respiratory Rate 17 breaths/min (10 - 20) 10/23/2016 8:15am O2 Sat by Pulse Oximetry 93 % (90 - 100) 10/23/2016 10:45am Oxygen Delivery Method Room Air 10/23/2016 10:45am Oxygen Delivery Method Room Air 10/23/2016 7:28am Blood Pressure 111/69 mm Hg 10/23/2016 10:45am Blood Pressure Source Automatic Cuff 10/23/2016 10:45am Height (Feet) 5 feet 10/23/2016 9:20am Height (Inches) 9.00 inches 10/23/2016 9:20am Weight (Kilograms) 88.500 kg 10/23/2016 7:27am Body Mass Index (BMI) 28.7 10/22/2016 11:53am Results Laboratory Results Test Name Result Units Flags Reference Collection Date/Time Result Date/ Time Comments White Blood Count 10.3 T/MM3 4.5-11.0 10/23/2016 4:16am 10/23/2016 5: 47am Red Blood Count 5.21 M/MM3 4.50-5.90 10/23/2016 4:16am 10/23/2016 5: 47am Hemoglobin 16.1 GM/DL 13.5-17.5 10/23/2016 4:16am 10/23/2016 5:47am Hematocrit 45.8 % 41-53 10/23/2016 4:16am 10/23/2016 5:47am Mean Corpuscular Volume 87.9 UM3 80-100 10/23/2016 4:16am 10/23/2016 5: 47am Mean Corpuscular Hemoglobin 30.9 UUG 26-34 10/23/2016 4:2016 5:47am Mean Corpuscular Hemoglobin Concent 35.2 GM/DL 31-37 10/23/2016 4:10/23/2016 5:47am RDW Standard Deviation 39.8 FL 36.9-50.2 10/23/2016 4:10/23/2016 5 :47am Platelet Count 155 T/MM3 130-400 10/23/2016 4:10/23/2016 5:47am Mean Platelet Volume 11.3 UM3 9.4-12.4 10/23/2016 4:10/23/2016 5: 47am Neutrophils (%) (Auto) 52.7 % 33-66 10/22/2016 10:10/22/2016 10: 35am Lymphocytes (%) (Auto) 37.7 % 23-45 10/22/2016 10:10/22/2016 10: 35am Monocytes (%) (Auto) 5.9 % 0-9.0 10/22/2016 10:10/22/2016 10:35am Eosinophils (%) (Auto) 2.7 % 0-4 10/22/2016 10:10/22/2016 10:35am Basophils (%) (Auto) 0.6 % 0-2 10/22/2016 10:10/22/2016 10:35am Immature Granulocyte % (Auto) 0.4 % 0.0-0.5 10/22/2016 10:2016 10:35am Absolute Neutrophils (auto) 5.6 T/MM3 1.8-7.7 10/22/2016 10:2016 10:35am Absolute Lymphocytes (auto) 4.0 T/MM3 1-4.8 10/22/2016 10:2016 10:35am Absolute Monocytes (auto) 0.6 T/MM3 0-0.8 10/22/2016 10:302016 10:35am Absolute Eosinophils (auto) 0.3 T/MM3 0-0.5 10/22/2016 10:2016 10:35am Absolute Basophils (auto) 0.1 T/MM3 0-0.2 10/22/2016 10:30am 2016 10:35am Absolute Immature Granulocyte (auto 0.04 T/MM3 H 0.00-0.03 10/22/2016 10: 30am 10/22/2016 10:35am Icterus Index < 2 0-7 10/23/2016 4:1610/23/2016 5:32am Chemistry Specimen Hemolysis < 15 0-25 10/23/2016 4:1610/23/2016 5 :32am 0-25: Specimen Exhibited No Hemolysis. Turbidity < 20 0-20 10/23/2016 4:1610/23/2016 5:32am Sodium Level 146 MEQ/L H 134-144 10/23/2016 4:1610/23/2016 5:32am Potassium Level 3.9 MEQ/L 3.6-5 10/23/2016 4:1610/23/2016 5:32am Chloride Level 105 MEQ/L 98-107 10/23/2016 4:1610/23/2016 5:32am Carbon Dioxide Level 30 MEQ/L 22-30 10/23/2016 4:1610/23/2016 5: 32am Anion Gap 11 MEQ/L 5-15 10/23/2016 4:1610/23/2016 5:32am Blood Urea Nitrogen 11.0 MG/DL 9-10/23/2016 4:1610/23/2016 5: 32am Creatinine 0.9 MG/DL D 0.8-1.5 10/23/2016 4:1610/23/2016 5:35am BUN/Creatinine Ratio 12 RATIO 6-26 10/23/2016 4:1610/23/2016 5:32am Glomerular Filtration Rate Calc 88 10/23/2016 4:1610/23/2016 5: 32am Glucose Level 89 MG/DL 75-110 10/23/2016 4:1610/23/2016 5:32am Calculated Osmolality 279 MOSM/KG 261-280 10/23/2016 4:10/23/2016 5:32am Calcium Level 9.6 MG/DL 8.4-10.2 10/23/2016 4:1610/23/2016 5:32am Total Bilirubin 0.60 MG/DL 0.20-1.30 10/22/2016 10:30am 10/22/2016 10: 44am Alkaline Phosphatase 70 U/L 38-126 10/22/2016 10:30am 10/22/2016 10: 44am Total Protein 6.9 G/DL 6.3-8.2 10/22/2016 10:30am 10/22/2016 10:44am Albumin 4.6 G/DL 3.5-5.0 10/22/2016 10:30am 10/22/2016 10:44am Globulin 2.3 G/DL L 2.4-3.6 10/22/2016 10:30am 10/22/2016 10:44am Albumin/Globulin Ratio 2.0 RATIO 1.1-2.2 10/22/2016 10:30am 10/22/2016 10:44am Aspartate Amino Transf (AST/SGOT) 27 U/L 17-59 10/22/2016 10:30am 10/22 10:44am Alanine Aminotransferase (ALT/SGPT) 50 U/L 21-72 10/22/2016 10:30am 10:44am Troponin I < 0.012 ng/ml 0-0.12 10/23/2016 4:16am 10/23/2016 5:40am Troponin values with a difference of 55% increase from orginal troponin value represent a true biological DELTA value. (%increase Calc=Orginal Troponin value, divided by subsequent Troponin value, multiplied by 100) Name: JOSE ALFREDO GOODMAN Unit #: [id number] : 1960 Sex: M Admit Date: Loc / Svc: ED Discharge Date: DIAGNOSTIC IMAGING REPORT Report #: [id number] [facility] CODI [place] Indication: ITS.REASON: cp CHEST 1 VIEW: Comparison: August 08 2012 Technique: Single AP portable upright chest Findings: Patient continues to show normal heart, mediastinum and central vascularity. Lungs are clear. Postop changes of a right shoulder replacement are present. Impression: No active cardiopulmonary abnormality. . Procedures No known history of procedures. Encounters Encounter Location Arrival/Admit Date Discharge/Depart Date Attending Provider Discharged Inpatient (obs) [facility] 10/22/16 11:01am 10/23/16 11:03am ANA REMY MD
--- OUTSIDE RECORDS SUMMARY | 2016-10-24 07:06 | XMS REPORT | Continuity of Care Document ---
Demographics Preferred Language Unknown Marital Status Unknown Alevism Affiliation Unknown Race Unknown Ethnic Group Unknown Author Author [facility] Organization [facility] Address Unknown Phone Unavailable Allergies Active Description Code Type Severity Reaction Onset Reported/Identified Relationship to Patient Clinical Status Yes No Known Allergies NKMA N/A N/A 10/09/2014 Medications Problems Procedures Results Encounters ACCT No. Visit Date/Time Discharge Status Pt. Type Provider Facility Loc./Unit Complaint [id number] 12/02/2014 13:22:00 Document Registration
== END 2016-10-23 11:03 | disposition home or self-care (01) ==
LOC: ED 10:15 → MED 11:01 → CATH 11:01 → EDHOLD 11:01 → UNDOADMOB 11:01 → MED 11:45 → EDHOLD 11:45 → MED 10-23 08:23 → SRG 10-23 08:23 → CATH 10-23 11:03 → UNDODISOB 10-23 11:03
PROVIDERS: ATTEND Internal Medicine Cardiovascular Disease
DX: I25.118 Atherosclerotic heart disease of native coronary artery with other forms of angina pectoris (principal); R07.2 Precordial pain; Z95.5 Presence of coronary angioplasty implant and graft; E78.2 Mixed hyperlipidemia; F17.210 Nicotine dependence, cigarettes, uncomplicated; G89.29 Other chronic pain; R60.0 Localized edema; Z79.82 Long term (current) use of aspirin; Z79.899 Other long term (current) drug therapy; Z82.49 Family history of ischemic heart disease and other diseases of the circulatory system
CPT/HCPCS: 36415; 71010; 80048; 80053; 84484; 85025; 85027; 93005; 93458; 96360; 96372; 99218; 99284; C1769; C1893; J1644; J1650; J2250; J2405; J3010; J3490; J7030; Q9967